=== PATIENT | female | born 1965 | race American Indian/Alaskan Native ===

== ENCOUNTER 2017-09-13 00:01 | Emergency (ER) | payer OTHER ==
[2017-09-13 01:32] LABS: Basophils % (Auto) 0.9 % (0.0-1.8); Eosinophils % (Auto) 2.4 % (0.0-4.3); Hematocrit 40.5 % (30.3-42.9); Hemoglobin 13.6 gm/dl (10.1-14.3); Mean Corpuscular HGB Conc 34 % (30-34); Mean Corpuscular Hemoglobin 30 pg (28-32); Mean Corpuscular Volume 89 fl (79-97); Platelet Count 251 K/mm3 (140-440); Red Blood Count 4.56 M/mm3 (3.65-5.03); Red Cell Distribution Width 14.1 % (13.2-15.2); White Blood Count 7.4 K/mm3 (4.5-11.0)
[2017-09-13 02:01] LABS: Alanine Aminotransferase 24 units/L (7-56); Albumin 3.7 g/dL (3.9-5); Albumin/Globulin Ratio 1.2 %; Alkaline Phosphatase 109 units/L (35-129); Anion Gap 18 mmol/L; BUN/Creatinine Ratio 23; Blood Urea Nitrogen 14 mg/dL (7-17); Carbon Dioxide 26 mmol/L (22-30); Chloride 97.2 mmol/L (98-107); Glucose 289 mg/dL (65-100); Lipase 45 units/L (13-60); Potassium 3.5 mmol/L (3.6-5.0); Sodium 138 mmol/L (137-145); Total Protein 6.9 g/dL (6.3-8.2)
[2017-09-13 02:49] LABS: Bilirubin,Urine NEG (Negative); Blood,Urine SM (Negative); Ketones,Urine NEG (Negative); Leukocyte Esterase,Urine TR (Negative); Nitrite,Urine NEG (Negative); Protein,Urine <15 mg/dL mg/dL (Negative); Urobilinogen,Urine < 2.0 mg/dL (<2.0)
--- NOTE | 2017-09-13 03:03 | Emergency Department Report ---
ED Abdominal Pain HPI - General Chief Complaint: Abdominal Pain Stated Complaint: BACK PAIN Time Seen by Provider: 09/13/17 03:00 Source: patient Mode of arrival: Ambulatory Limitations: No Limitations - History of Present Illness MD Complaint: abdominal pain -: Gradual, month(s) (since February) Location: RLQ Radiation: R flank Migration to: no migration Severity scale (0 -10): 9 Quality: stabbing Consistency: constant Improves With: rest Worsens With: medication, movement Associated Symptoms: nausea, dysuria - Related Data Home Medications Medication Instructions Recorded Confirmed Last Taken Benazepril (Nf) 10 mg PO DAILY 08/09/13 10/28/14 10/27/14 Chlorthalidone [Thalitone] 12.5 mg PO QDAY 08/09/13 10/28/14 10/27/14 Furosemide [Lasix] 40 mg PO DAILY 08/09/13 10/28/14 10/27/14 Insulin Aspart [Novolog 100 0 unit SQ AC PRN 08/09/13 10/28/14 10/27/14 UNITS/ML] Insulin Glargine,Hum.rec.anlog 102 unit SQ QHS 08/09/13 10/28/14 10/27/14 [Lantus Solostar] Insulin NPH/Regular [Novolin 70/30] 35 unit SQ QPM 08/09/13 10/28/14 10/27/14 Insulin NPH/Regular [Novolin 70/30] 60 unit SQ QAM 08/09/13 10/28/14 10/27/14 Metformin HCl [Fortamet] 1,000 mg PO BID 08/09/13 10/28/14 10/27/14 Nebivolol HCl [Bystolic] 10 mg PO QDAY 08/09/13 10/28/14 10/27/14 Pantoprazole [Protonix] 40 mg PO QDAY 08/09/13 10/28/14 10/27/14 Potassium Chloride [Klor-Con] 20 meq PO QDAY 08/09/13 10/28/14 10/27/14 Thyroid,Pork [Proctor Thyroid] 90 mg PO QDAY 08/09/13 10/28/14 10/27/14 amLODIPine [Norvasc] 10 mg PO DAILY 08/09/13 10/28/14 10/27/14 Previous Rx's Medication Instructions Recorded Last Taken Type Phenazopyridine [Pyridium] 200 mg PO TID #9 tablet 08/09/13 10/27/14 Rx traMADol [Ultram 50 MG tab] 50 mg PO Q6HR PRN #20 tablet 10/20/14 Unknown Rx Ciprofloxacin HCl [Ciprofloxacin 500 mg PO Q12H #14 tab 09/13/17 Unknown Rx TAB] Allergies Allergy/AdvReac Type Severity Reaction Status Date / Time No Known Allergies Allergy Verified 10/20/14 06:54 ED Review of Systems ROS: Stated complaint: BACK PAIN Other details as noted in HPI Comment: All other systems reviewed and negative Constitutional: no symptoms reported Eyes: as per HPI ENT: as per HPI Respiratory: no symptoms reported, see HPI Cardiovascular: as per HPI Endocrine: no symptoms reported Gastrointestinal: abdominal pain, nausea Genitourinary: as per HPI, urgency, dysuria, frequency Musculoskeletal: as per HPI Skin: as per HPI Neurological: as per HPI Psychiatric: as per HPI Hematological/Lymphatic: as per HPI ED Past Medical Hx - Past Medical History Previous Medical History?: Yes Hx Diabetes: Yes Hx GERD: Yes Additional medical history: afib, glaucoma/retinopathy, fibromyalgia. Kidney stones. Obesity - Surgical History Past Surgical History?: Yes Hx Cholecystectomy: Yes Additional Surgical History: Left Ankle fx, carpal tunnel bilateral wrists. Hysterectomy - Social History Smoking Status: Never Smoker Substance Use Type: None - Medications Home Medications: Home Medications Medication Instructions Recorded Confirmed Last Taken Type Benazepril (Nf) 10 mg PO DAILY 08/09/13 10/28/14 10/27/14 History Chlorthalidone [Thalitone] 12.5 mg PO QDAY 08/09/13 10/28/14 10/27/14 History Furosemide [Lasix] 40 mg PO DAILY 08/09/13 10/28/14 10/27/14 History Insulin Aspart [Novolog 100 0 unit SQ AC PRN 08/09/13 10/28/14 10/27/14 History UNITS/ML] Insulin Glargine,Hum.rec.anlog 102 unit SQ QHS 08/09/13 10/28/14 10/27/14 History [Lantus Solostar] Insulin NPH/Regular [Novolin 70/30] 35 unit SQ QPM 08/09/13 10/28/14 10/27/14 History Insulin NPH/Regular [Novolin 70/30] 60 unit SQ QAM 08/09/13 10/28/14 10/27/14 History Metformin HCl [Fortamet] 1,000 mg PO BID 08/09/13 10/28/14 10/27/14 History Nebivolol HCl [Bystolic] 10 mg PO QDAY 08/09/13 10/28/14 10/27/14 History Pantoprazole [Protonix] 40 mg PO QDAY 08/09/13 10/28/14 10/27/14 History Phenazopyridine [Pyridium] 200 mg PO TID #9 tablet 08/09/13 10/28/14 10/27/14 Rx Potassium Chloride [Klor-Con] 20 meq PO QDAY 08/09/13 10/28/14 10/27/14 History Thyroid,Pork [Proctor Thyroid] 90 mg PO QDAY 08/09/13 10/28/14 10/27/14 History amLODIPine [Norvasc] 10 mg PO DAILY 08/09/13 10/28/14 10/27/14 History traMADol [Ultram 50 MG tab] 50 mg PO Q6HR PRN #20 tablet 10/20/14 10/28/14 Unknown Rx Ciprofloxacin HCl [Ciprofloxacin 500 mg PO Q12H #14 tab 09/13/17 Unknown Rx TAB] ED Physical Exam - General Limitations: No Limitations General appearance: alert, in no apparent distress - Head Head exam: Present: atraumatic, normocephalic - Eye Eye exam: Present: normal appearance - ENT ENT exam: Present: mucous membranes moist - Neck Neck exam: Present: normal inspection - Respiratory Respiratory exam: Present: normal lung sounds bilaterally. Absent: respiratory distress - Cardiovascular Cardiovascular Exam: Present: regular rate, normal rhythm. Absent: systolic murmur, diastolic murmur, rubs, gallop - GI/Abdominal GI/Abdominal exam: Present: soft, normal bowel sounds - Extremities Exam Extremities exam: Present: normal inspection - Back Exam Back exam: Present: normal inspection - Neurological Exam Neurological exam: Present: alert, oriented X3 - Psychiatric Psychiatric exam: Present: normal affect, normal mood - Skin Skin exam: Present: warm, dry, intact, normal color. Absent: rash ED Course Vital Signs 09/13/17 09/13/17 09/13/17 00:38 02:12 04:47 Temperature 98.2 F 98.6 F Pulse Rate 93 H 84 89 Respiratory 18 16 16 Rate Blood Pressure 141/57 125/59 121/60 [Right] O2 Sat by Pulse 98 95 97 Oximetry ED Medical Decision Making - Lab Data Result diagrams: 09/13/17 01:03 09/13/17 01:03 Critical care attestation.: If time is entered above; I have spent that time in minutes in the direct care of this critically ill patient, excluding procedure time. ED Disposition Clinical Impression: Abdominal pain, UTI (urinary tract infection), Flank pain, Dysuria Disposition: - TO HOME OR SELFCARE Is pt being admited?: No Does the pt Need Aspirin: No Condition: Stable Instructions: Abdominal Pain (ED) Additional Instructions: Patient to follow-up with primary care and lead cashier in 3-5 days. Patient to take Tylenol or ibuprofen when necessary for pain.. Patient to increase water.. Patient to return to ED if condition worsens. Prescriptions: Ciprofloxacin HCl [Ciprofloxacin TAB] 500 mg PO Q12H #14 tab Referrals: PRIMARY CARE [Primary Care Provider] - 3-5 Days Time of Disposition: 04:57
--- NOTE | 2017-09-13 04:12 | Cat Scan Report ---
FINAL REPORT EXAM: CT ABDOMEN PELVIS WO CON HISTORY: pain RT FLANK / RLQ PAIN TECHNIQUE: Routine axial imaging was obtained of the abdomen and pelvis without oral or IV contrast. Sagittal and coronal reconstructions were reviewed. Comparison is made study of 10/20/2014. FINDINGS: The lung bases reveal chronic changes bilaterally. Pleural fluid is not seen. The gallbladder is not identified. The liver, pancreas, spleen, and adrenal glands appear normal. The kidneys show no evidence of stones or hydronephrosis. The bowel loops are normal in caliber and course. The appendix is normal in configuration. There is no evidence of free fluid or adenopathy. In the pelvis the bladder appears normal. The uterus has been removed. The skeletal structures reveal obesity along with facet arthropathy changes in the lower lumbar spine. IMPRESSION: No evidence of renal stones or obstructive uropathy. Normal appendix. Cholecystectomy. No acute process in the abdomen pelvis. Hysterectomy.
[2017-09-13 04:47] VITALS: BP 121/60
[2017-09-13] MEDS ORDERED: XYLOCAINE 1% MPF 5 mL INFILTRATI ONE (04:59)
[2017-09-13] MEDS ORDERED: ROCEPHIN IM ONE (04:59)
== END 2017-09-13 05:51 | disposition home or self-care (01) ==
LOC: ED 00:01
DX: N39.0 Urinary tract infection, site not specified (principal); R30.0 Dysuria; R10.31 Right lower quadrant pain; E11.9 Type 2 diabetes mellitus without complications; K21.9 Gastro-esophageal reflux disease without esophagitis; Z79.4 Long term (current) use of insulin
CPT/HCPCS: 36415; 74176; 80053; 81001; 83690; 85025; 96372; 99284; J0696

== ENCOUNTER 2017-12-10 10:50 | Outpatient (CLI) | payer OTHER ==
--- NOTE | 2017-12-10 16:24 | Ultrasound Report ---
ABDOMINAL ULTRASOUND: 12/10/17 CLINICAL: Abdominal pain. FINDINGS: High-resolution ultrasound demonstrates an enlarged and echogenic liver and suboptimal imaging of the liver due to body habitus. No liver mass identified. Poor visualization of hepatic vasculature. Normal inferior vena cava. A gallbladder was not identified. This normal bile ducts. The common bile duct measures 1 mm diameter. Normal pancreatic head and proximal body. The distal body and tail are not well imaged due to the bowel gas. Normal abdominal aorta. A normal spleen measures 9.9 x 4.9 x 5.9cm. Normal kidneys with normal echogenicity and normal non-dilated renal collecting systems and ureters. The right kidney measures 11.5 x 5.5 x 5.0cm. The left kidney measures 12.2 x 5.8 x 5.0cm. No renal mass or calculus. No ascites or mass. IMPRESSION: 1. Hepatic steatosis and hepatomegaly. 2. Normal bile ducts status post cholecystectomy. 3. No signs of pancreatitis but limited imaging of the distal pancreas.
--- NOTE | 2017-12-10 16:26 | Ultrasound Report ---
TRANSABDOMINAL AND TRANSVAGINAL PELVIC ULTRASOUND: 12/10/17 00:00:00 CLINICAL: Pelvic and perineal pain. FINDINGS: Transabdominal and transvaginal pelvic ultrasound demonstrated absence of the uterus and normal vaginal cuff. No ovaries identified. No adnexal mass. No free fluid. Normal urinary bladder. IMPRESSION: Normal pelvis status post total abdominal hysterectomy. No explanation for pelvic pain.
== END 2017-12-10 10:51 | disposition home or self-care (01) ==
LOC: SPVWC 10:50
PROVIDERS: ATTEND Nurse Practitioner Family
DX: K76.0 Fatty (change of) liver, not elsewhere classified (principal); R16.0 Hepatomegaly, not elsewhere classified; R10.2 Pelvic and perineal pain; Z90.710 Acquired absence of both cervix and uterus; Z90.49 Acquired absence of other specified parts of digestive tract
CPT/HCPCS: 76700; 76830; 76856

== ENCOUNTER 2018-02-12 07:07 | Day surgery (SDC) | payer OTHER ==
[2018-02-12] MEDS ORDERED: WATER FOR IRRIG STERILE IR ONE (07:24)
[2018-02-12] MEDS ORDERED: INFANTS' GAS RELIEF PO ONE ×2 (07:25→09:22)
--- NOTE | 2018-02-12 08:23 | Anesthesia Consultation ---
Anesthesia Consult and Med Hx Date of service: 02/12/18 - Airway Anesthetic Teeth Evaluation: Poor ROM Head & Neck: Adequate Mental/Hyoid Distance: Adequate Mallampati Class: Class IV Intubation Access Assessment: Possibly Difficult - Pre-Operative Health Status ASA Pre-Surgery Classification: ASA3 Proposed Anesthetic Plan: MAC - Pulmonary SOB: Yes Hx Sleep Apnea: Yes - Cardiovascular System Hx Hypertension: Yes Hx Cardia Arrhythmia: Yes (h/o a-fib) Hx Valvular Heart Disease: Yes (MVP) Hx Peripheral Vascular Disease: Yes (diabetic neuropathy) - Endocrine Hx Insulin Dependent Diabetes: Yes - Other Systems Hx Obesity: Yes (morbid obesity)
--- NOTE | 2018-02-12 08:24 | Anesthesia Day of Surgery ---
Anesthesia Day of Surgery - Day of Surgery Patient Examined: Yes Patient H&P Reviewed: Yes Patient is NPO: Yes Beta Blockers: Yes Cardiac Clearance: Yes
[2018-02-12] MEDS ORDERED: KETALAR ONE (09:05)
[2018-02-12] MEDS ORDERED: GI SPOT IJ ONE (09:32)
[2018-02-12] MEDS ORDERED: DIPRIVAN 10 MG/ML IV ONE ×2 (09:48→09:49)
--- NOTE | 2018-02-12 09:57 | Short Stay Summary ---
Short Stay Documentation - Allergies and Medications Current Medications: Allergies No Known Allergies Allergy (Verified 10/20/14 06:54) Home Medications Medication Instructions Recorded Confirmed Last Taken Type Benazepril (Nf) 10 mg PO DAILY 08/09/13 10/28/14 10/27/14 History Chlorthalidone [Thalitone] 12.5 mg PO QDAY 08/09/13 10/28/14 10/27/14 History Furosemide [Lasix] 40 mg PO DAILY 08/09/13 10/28/14 10/27/14 History Insulin Aspart [Novolog 100 0 unit SQ AC PRN 08/09/13 10/28/14 10/27/14 History UNITS/ML] Insulin Glargine,Hum.rec.anlog 102 unit SQ QHS 08/09/13 10/28/14 10/27/14 History [Lantus Solostar] Insulin NPH/Regular [Novolin 70/30] 35 unit SQ QPM 08/09/13 10/28/14 10/27/14 History Insulin NPH/Regular [Novolin 70/30] 60 unit SQ QAM 08/09/13 10/28/14 10/27/14 History Metformin HCl [Fortamet] 1,000 mg PO BID 08/09/13 10/28/14 10/27/14 History Nebivolol HCl [Bystolic] 10 mg PO QDAY 08/09/13 10/28/14 10/27/14 History Pantoprazole [Protonix] 40 mg PO QDAY 08/09/13 10/28/14 10/27/14 History Phenazopyridine [Pyridium] 200 mg PO TID #9 tablet 08/09/13 10/28/14 10/27/14 Rx Potassium Chloride [Klor-Con] 20 meq PO QDAY 08/09/13 10/28/14 10/27/14 History Thyroid,Pork [Williams Thyroid] 90 mg PO QDAY 08/09/13 10/28/14 10/27/14 History amLODIPine [Norvasc] 10 mg PO DAILY 08/09/13 10/28/14 10/27/14 History traMADol [Ultram 50 MG tab] 50 mg PO Q6HR PRN #20 tablet 10/20/14 10/28/14 Unknown Rx Ciprofloxacin HCl [Ciprofloxacin 500 mg PO Q12H #14 tab 09/13/17 Unknown Rx TAB] - Brief post op/procedure progress note Date of procedure: 02/12/18 Pre-op diagnosis: colon cancer screening Post-op diagnosis: same (EGD: 1. GERD 2. Gastritis 3. Gastric nodule 4, Duodenitis Colonoscopy: 1. Polypoid mass 2, Internal hemorrhoids) Procedure: 1. EGD with biopsy 2. Colonoscopy with biopsy and Tattooing Anesthesia: MAC Findings: as above Surgeon: WILLIAM DIXON Estimated blood loss: none Pathology: list (1. Antrum 2. Gastric nodule 3. Transverse colon mass) Specimen disposition: to lab Condition: stable - Disposition Condition at discharge: Stable Disposition: [id number]-01 TO HOME OR SELFCARE Short Stay Discharge Plan Activity: no restrictions Weight Bearing Status: Full Weight Bearing Diet: regular, low salt Follow up with: ALCON ALVES MD [Primary Care Provider] - 7 Days
[2018-02-12 10:16] VITALS: BP 171/89
[2018-02-12] MEDS ORDERED: NACL 0.9% 1000 ML 1,000 ML IV SCH (11:00)
[2018-02-12] MEDS ORDERED: INFANTS' GAS RELIEF PO PRN (14:14)
--- NOTE | 2018-02-12 15:27 | Post Anesthesia Evaluation ---
- Post Anesthesia Evaluation Patient Participated: Yes Airway Patent: Yes Stable Respiratory Function: Yes Nausea/Vomiting: No Temp > 96.8F: Yes Pain Manageable: Yes Adequeate Hydration: Yes Anesthesia Complications: No
== END 2018-02-12 07:08 | disposition home or self-care (01) ==
LOC: GIO 07:07
PROVIDERS: ATTEND Internal Medicine Gastroenterology
DX: Z12.11 Encounter for screening for malignant neoplasm of colon (principal); D12.3 Benign neoplasm of transverse colon; K64.8 Other hemorrhoids; K31.7 Polyp of stomach and duodenum; K29.00 Acute gastritis without bleeding; K29.80 Duodenitis without bleeding; K21.9 Gastro-esophageal reflux disease without esophagitis; E11.319 Type 2 diabetes mellitus with unspecified diabetic retinopathy without macular edema; E11.40 Type 2 diabetes mellitus with diabetic neuropathy, unspecified; I10 Essential (primary) hypertension; M06.9 Rheumatoid arthritis, unspecified; I48.0 Paroxysmal atrial fibrillation; G47.33 Obstructive sleep apnea (adult) (pediatric); E66.01 Morbid (severe) obesity due to excess calories; E78.5 Hyperlipidemia, unspecified; K31.89 Other diseases of stomach and duodenum; Z79.01 Long term (current) use of anticoagulants; Z79.4 Long term (current) use of insulin; Z83.3 Family history of diabetes mellitus; Z82.49 Family history of ischemic heart disease and other diseases of the circulatory system; Z87.19 Personal history of other diseases of the digestive system
CPT/HCPCS: 43239; 45380; 45381; 82962; 88305; 88342; J2704; J7030

== ENCOUNTER 2018-03-09 23:47 | Emergency (ER) | payer OTHER ==
[2018-03-10 00:39] VITALS: BP 129/73
--- NOTE | 2018-03-10 02:44 | XRay Report ---
FINAL REPORT EXAM: XR KNEE 3V RT HISTORY: fall with swelling and pain COMPARISON: None available. FINDINGS: Three views of the right knee obtained. Small joint effusion. Mild patellar osteophyte. Joint spaces are preserved. No acute fracture dislocation. IMPRESSION: No acute bony abnormality. Small joint effusion.
--- NOTE | 2018-03-10 02:44 | XRay Report ---
FINAL REPORT EXAM: XR FOREARM RT HISTORY: Fall keyshawn swelling and pain COMPARISON: Right wrist from the same date. FINDINGS: Two views of the right forearm obtained. Remote fracture of the distal ulnar diaphysis. Fracture is healed. 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 Radius and ulna are otherwise intact. Mild narrowing of the radiocarpal joint space. Small olecranon enthesophyte. Mild hypertrophic spurring of the proximal ulna. No acute fracture dislocation. IMPRESSION: No acute bony abnormality.
--- NOTE | 2018-03-10 02:44 | XRay Report ---
FINAL REPORT EXAM: XR WRIST 3+V RT HISTORY: fall with pain and swelling COMPARISON: None available. FINDINGS: Three views the right wrist obtained. There is a remote fracture of the distal ulnar diaphysis which is healed. Normal alignment of the carpal bones. Mild narrowing of the radiocarpal joint space and mild degenerative changes of the triscaphe joint and 1st carpometacarpal joint. 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 IMPRESSION: No acute fracture. Remote fractures of the distal ulna.
--- NOTE | 2018-03-10 03:23 | Emergency Department Report ---
ED Fall HPI - General Chief Complaint: Fall Stated Complaint: RT WRIST/RT KNEE PAIN Time Seen by Provider: 03/10/18 03:20 Source: patient Mode of arrival: Wheelchair - History of Present Illness Initial Comments: 52-year-old -Russian female. Multiple history of A. fib TIA diabetes hypertension comes in status post fall. Patient reports that her Ruiz got stuck on the floor and she fell forward onto her knees and face. Patient denies any loss of consciousness denies any head injury she reports she has right knee and right wrist pain. Patient does admit that she's had a right wrist fracture in the past. Patient is on warfarin insulin hypertensive in heart failure medication as well as gabapentin Synthroid. Patient denies any dizziness shortness of breathing or chest pain. 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[employer] Fall Witnessed: yes, by family Place Fall Occurred: home Loss of Consciousness: none Prolonged Down Time?: no Symptoms Prior to Fall: none Location - Extremities: Right: Arm, Knee Severity: severe Severity scale (0 -10): 10 Quality: stabbing Context: tripped/slipped Associated Symptoms: denies - Related Data Home Medications Medication Instructions Recorded Confirmed Last Taken Benazepril (Nf) 10 mg PO DAILY 08/09/13 02/12/18 02/11/18 Furosemide [Lasix] 40 mg PO DAILY 08/09/13 02/12/18 10/27/14 Insulin Aspart [Novolog 100 0 unit SQ AC PRN 08/09/13 02/12/18 10/27/14 UNITS/ML] Insulin Glargine,Hum.rec.anlog 102 unit SQ QHS 08/09/13 02/12/18 10/27/14 [Lantus Solostar] Insulin NPH/Regular [Novolin 70/30] 35 unit SQ QPM 08/09/13 02/12/18 02/11/18 Insulin NPH/Regular [Novolin 70/30] 60 unit SQ QAM 08/09/13 02/12/18 10/27/14 Metformin HCl [Fortamet] 1,000 mg PO BID 08/09/13 02/12/18 10/27/14 Nebivolol HCl [Bystolic] 10 mg PO QDAY 08/09/13 02/12/18 10/27/14 Pantoprazole [Protonix] 40 mg PO QDAY 08/09/13 02/12/18 02/11/18 Potassium Chloride [Klor-Con] 20 meq PO QDAY 08/09/13 02/12/18 02/11/18 Thyroid,Pork [[place] Thyroid] 90 mg PO QDAY 08/09/13 02/12/18 10/27/14 amLODIPine [Norvasc] 10 mg PO DAILY 08/09/13 02/12/18 10/27/14 ALBUTEROL Inhaler 2 puff INHALATION PRN PRN 02/12/18 02/12/18 Unknown AtorvaSTATin 20 mg PO DAILY 02/12/18 02/12/18 02/11/18 Carvedilol 25 mg PO DAILY 02/12/18 02/12/18 02/11/18 Cyclobenzaprine 10 mg PO PRN PRN 02/12/18 02/12/18 Unknown Enoxaparin 120 mg SUB-Q DAILY 02/12/18 02/12/18 02/11/18 Flonase 1 puff INHALATION DAILY 02/12/18 02/12/18 Unknown Furosemide 40 mg PO DAILY 02/12/18 02/12/18 02/11/18 Gabapentin 600 mg PO DAILY 02/12/18 02/12/18 Unknown Synthroid 1 tab PO DAILY 02/12/18 02/12/18 Unknown Vitamin D (Nf) 1,000 mg PO DAILY 02/12/18 02/12/18 Unknown Warfarin 5 mg PO DAILY 02/12/18 02/12/18 02/05/18 Warfarin 10 mg PO 1XW 02/12/18 02/12/18 Unknown Zofran TAB 8 mg PO PRN PRN 02/12/18 02/12/18 Unknown Previous Rx's Medication Instructions Recorded Last Taken Type Phenazopyridine [Pyridium] 200 mg PO TID #9 tablet 08/09/13 10/27/14 Rx Ciprofloxacin HCl [Ciprofloxacin 500 mg PO Q12H #14 tab 09/13/17 Unknown Rx TAB] traMADol [Ultram 50 MG tab] 50 mg PO Q6HR PRN #20 tablet 03/10/18 Unknown Rx Allergies Allergy/AdvReac Type Severity Reaction Status Date / Time adhesive tape Allergy Unknown Verified 03/10/18 01:18 ED Review of Systems ROS: Stated complaint: RT WRIST/RT KNEE PAIN Other details as noted in HPI Constitutional: denies: chills, fever Respiratory: denies: cough, shortness of breath, wheezing Cardiovascular: denies: chest pain, palpitations Endocrine: no symptoms reported Gastrointestinal: denies: abdominal pain, nausea, diarrhea Genitourinary: denies: urgency, dysuria, discharge Musculoskeletal: joint swelling (right knee and right wrist), arthralgia (right knee and right wrist) Skin: denies: rash, lesions Neurological: denies: headache, weakness, paresthesias Psychiatric: denies: anxiety, depression Hematological/Lymphatic: denies: easy bleeding, easy bruising ED Past Medical Hx - Past Medical History Previous Medical History?: Yes Hx Hypertension: Yes Hx Diabetes: Yes Hx GERD: Yes Hx Arthritis: Yes Additional medical history: afib, glaucoma/retinopathy, fibromyalgia. Kidney stones. Obesity - Surgical History Past Surgical History?: Yes Hx Cholecystectomy: Yes Additional Surgical History: Left Ankle fx, carpal tunnel bilateral wrists. Hysterectomy - Social History Smoking Status: Never Smoker Substance Use Type: None - Medications Home Medications: Home Medications Medication Instructions Recorded Confirmed Last Taken Type Benazepril (Nf) 10 mg PO DAILY 08/09/13 02/12/18 02/11/18 History Furosemide [Lasix] 40 mg PO DAILY 08/09/13 02/12/18 10/27/14 History Insulin Aspart [Novolog 100 0 unit SQ AC PRN 08/09/13 02/12/18 10/27/14 History UNITS/ML] Insulin Glargine,Hum.rec.anlog 102 unit SQ QHS 08/09/13 02/12/18 10/27/14 History [Lantus Solostar] Insulin NPH/Regular [Novolin 70/30] 35 unit SQ QPM 08/09/13 02/12/18 02/11/18 History Insulin NPH/Regular [Novolin 70/30] 60 unit SQ QAM 08/09/13 02/12/18 10/27/14 History Metformin HCl [Fortamet] 1,000 mg PO BID 08/09/13 02/12/18 10/27/14 History Nebivolol HCl [Bystolic] 10 mg PO QDAY 08/09/13 02/12/18 10/27/14 History Pantoprazole [Protonix] 40 mg PO QDAY 08/09/13 02/12/18 02/11/18 History Phenazopyridine [Pyridium] 200 mg PO TID #9 tablet 08/09/13 02/12/18 10/27/14 Rx Potassium Chloride [Klor-Con] 20 meq PO QDAY 08/09/13 02/12/18 02/11/18 History Thyroid,Pork [[place] Thyroid] 90 mg PO QDAY 08/09/13 02/12/18 10/27/14 History amLODIPine [Norvasc] 10 mg PO DAILY 08/09/13 02/12/18 10/27/14 History Ciprofloxacin HCl [Ciprofloxacin 500 mg PO Q12H #14 tab 09/13/17 02/12/18 Unknown Rx TAB] ALBUTEROL Inhaler 2 puff INHALATION PRN PRN 02/12/18 02/12/18 Unknown History AtorvaSTATin 20 mg PO DAILY 02/12/18 02/12/18 02/11/18 History Carvedilol 25 mg PO DAILY 02/12/18 02/12/18 02/11/18 History Cyclobenzaprine 10 mg PO PRN PRN 02/12/18 02/12/18 Unknown History Enoxaparin 120 mg SUB-Q DAILY 02/12/18 02/12/18 02/11/18 History Flonase 1 puff INHALATION DAILY 02/12/18 02/12/18 Unknown History Furosemide 40 mg PO DAILY 02/12/18 02/12/18 02/11/18 History Gabapentin 600 mg PO DAILY 02/12/18 02/12/18 Unknown History Synthroid 1 tab PO DAILY 02/12/18 02/12/18 Unknown History Vitamin D (Nf) 1,000 mg PO DAILY 02/12/18 02/12/18 Unknown History Warfarin 5 mg PO DAILY 02/12/18 02/12/18 02/05/18 History Warfarin 10 mg PO 1XW 02/12/18 02/12/18 Unknown History Zofran TAB 8 mg PO PRN PRN 02/12/18 02/12/18 Unknown History traMADol [Ultram 50 MG tab] 50 mg PO Q6HR PRN #20 tablet 03/10/18 Unknown Rx ED Physical Exam - General Limitations: No Limitations General appearance: alert, in no apparent distress - Head Head exam: Present: atraumatic, normocephalic - Eye Eye exam: Present: normal appearance - ENT ENT exam: Present: mucous membranes moist - Neck Neck exam: Present: normal inspection - Expanded Upper Extremity Exam Right Shoulder Exam: Present: normal inspection, full ROM Upper Arm exam: Present: normal inspection, full ROM Elbow exam: Present: normal inspection, full ROM Forearm Wrist exam: Present: tenderness, swelling. Absent: tenderness over anatomical snuff box, pain with axial thumb loading Hand Wrist exam: Present: tenderness, swelling Vascular: Present: vascular compromise - Expanded Lower Extremity Exam Right Hip exam: Present: normal inspection Upper Leg exam: Present: normal inspection Knee exam: Present: tenderness, swelling, abrasion Lower Leg exam: Present: normal inspection. Absent: tenderness Ankle exam: Present: normal inspection, full ROM. Absent: tenderness, swelling Neuro vascular tendon exam: Present: no vascular compromise - Back Exam Back exam: Present: normal inspection - Neurological Exam Neurological exam: Present: alert, oriented X3 - Psychiatric Psychiatric exam: Present: normal affect, normal mood - Skin Skin exam: Present: warm, dry, intact, normal color. Absent: rash ED Course Vital Signs 03/10/18 00:15 Temperature 98.1 F Pulse Rate 89 Respiratory 18 Rate Blood Pressure 129/73 O2 Sat by Pulse 97 Oximetry ED Medical Decision Making - Radiology Data Radiology results: report reviewed, image reviewed FINAL REPORT EXAM: XR FOREARM RT HISTORY: Fall keyshawn swelling and pain COMPARISON: Right wrist from the same date. FINDINGS: Two views of the right forearm obtained. Remote fracture of the distal ulnar diaphysis. Fracture is healed. 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 Radius and ulna are otherwise intact. Mild narrowing of the radiocarpal joint space. Small olecranon enthesophyte. Mild hypertrophic spurring of the proximal ulna. No acute fracture dislocation. IMPRESSION: No acute bony abnormality. Transcribed By: LMA Dictated By: MATT BEE MD Electronically Authenticated By: MATT BEE MD Signed Date/Time: 03/10/18216 DD/ 6 TD/TT: 03/10/18216 FINAL REPORT EXAM: XR WRIST 3+V RT HISTORY: fall with pain and swelling COMPARISON: None available. FINDINGS: Three views the right wrist obtained. There is a remote fracture of the distal ulnar diaphysis which is healed. Normal alignment of the carpal bones. Mild narrowing of the radiocarpal joint space and mild degenerative changes of the triscaphe joint and 1st carpometacarpal joint. 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 IMPRESSION: No acute fracture. Remote fractures of the distal ulna. Transcribed By: LMA Dictated By: MATT BEE MD Electronically Authenticated By: MATT BEE MD Signed Date/Time: 03/10/18215 DD/ 5 TD/TT: 03/10/18215 FINAL REPORT EXAM: XR KNEE 3V RT HISTORY: fall with swelling and pain COMPARISON: None available. FINDINGS: Three views of the right knee obtained. Small joint effusion. Mild patellar osteophyte. Joint spaces are preserved. No acute fracture dislocation. IMPRESSION: No acute bony abnormality. Small joint effusion. Transcribed By: LMA Dictated By: MATT BEE MD Electronically Authenticated By: MATT BEE MD Signed Date/Time: 03/10/18215 - Medical Decision Making Patient's been evaluated by this provider fast track. I discussed the patient appears to be no acute fractures. Discussed the patient I'll place him on knee immobilizer and walker. Discussed the patient is symptoms persist to follow up with orthopedist I will list several below for her convenience. Discussed the patient I will place her on tramadol for pain. Patient verbalized understanding. Critical care attestation.: If time is entered above; I have spent that time in minutes in the direct care of this critically ill patient, excluding procedure time. ED Disposition Clinical Impression: Right wrist pain, Right anterior knee pain Fall Qualifiers: Encounter type: initial encounter Qualified Code(s): W19.XXXA - Unspecified fall, initial encounter Right knee injury Qualifiers: Encounter type: initial encounter Qualified Code(s): S89.91XA - Unspecified injury of right lower leg, initial encounter Disposition: TO HOME OR SELFCARE Is pt being admited?: No Does the pt Need Aspirin: No Condition: Stable Additional Instructions: Please take tramadol as prescribed. Please follow up with orthopedist for further evaluation if symptoms persist or gets worse. Prescriptions: traMADol [Ultram 50 MG tab] 50 mg PO Q6HR PRN #20 tablet PRN Reason: Pain Referrals: PRIMARY CAREMD [Primary Care Provider] - 3-5 Days GALLO OTT MD [Staff Physician] - 3-5 Days JAMARCUS MULLEN MD [Staff Physician] - 3-5 Days [facility] [Provider Group] - 3-5 Days Forms: Accompanied Note
[2018-03-10] MEDS ORDERED: PERCOCET 5/325 PO ONE (03:44)
== END 2018-03-10 04:11 | disposition home or self-care (01) ==
LOC: ED 23:47
DX: S89.91XA Unspecified injury of right lower leg, initial encounter (principal); I10 Essential (primary) hypertension; E11.9 Type 2 diabetes mellitus without complications; K21.9 Gastro-esophageal reflux disease without esophagitis; M19.90 Unspecified osteoarthritis, unspecified site; Z90.49 Acquired absence of other specified parts of digestive tract; Z90.710 Acquired absence of both cervix and uterus; Z87.442 Personal history of urinary calculi; Z79.4 Long term (current) use of insulin; Z91.09 Other allergy status, other than to drugs and biological substances; W01.198A Fall on same level from slipping, tripping and stumbling with subsequent striking against other object, initial encounter; Y93.89 Activity, other specified; Y92.89 Other specified places as the place of occurrence of the external cause; Y99.8 Other external cause status
CPT/HCPCS: 99284

== ENCOUNTER 2018-04-02 10:22 | Emergency (ER) | payer OTHER ==
[2018-04-02 10:58] VITALS: BP 137/59
[2018-04-02] MEDS ORDERED: MOTRIN PO ONE (12:23)
--- NOTE | 2018-04-02 12:23 | Emergency Department Report ---
Blank Doc - Documentation Documentation: Patient is a 53-year-old female who fell roughly 7 days ago down 3 stairs who is coming in for pain. Patient states that she thought her pain would be better by now but is not. Patient has some swelling and pain at the right elbow as well as bilateral rib pain. Patient states first take a deep breath and when she coughs she has to grab her chest. Patient denies any fevers chills nausea vomiting. Patient states there was no head injury loss of consciousness. Patient states the pains are a 10 severity.
--- NOTE | 2018-04-02 12:49 | XRay Report ---
RIGHT ELBOW, 2 views: HISTORY: Fall with injury. The bony architecture is intact without evidence of fracture or dislocation. No significant soft tissue abnormality is seen. IMPRESSION: Normal right elbow.
--- NOTE | 2018-04-02 12:52 | XRay Report ---
BILATERAL RIBS, 4 views: History: Fall injury. There is suggestion of a very subtle nondisplaced right lateral seventh rib fracture which is best demonstrated on the oblique image. Please correlate with the patient. The remaining ribs are intact. The lungs are well-aerated. IMPRESSION: Questionable nondisplaced right lateral seventh rib fracture.
--- NOTE | 2018-04-02 13:45 | Emergency Department Report ---
ED Extremity Problem HPI - General Chief complaint: Fall Stated complaint: RIB PAIN FROM FALL Time Seen by Provider: 04/02/18 12:19 Source: patient Mode of arrival: Ambulatory Limitations: No Limitations - History of Present Illness Initial comments: Patient is a 53-year-old female who fell roughly 7 days ago down 3 stairs who is coming in for pain. Patient states that she thought her pain would be better by now but is not. Patient has some swelling and pain at the right elbow as well as bilateral rib pain. Patient states first take a deep breath and when she coughs she has to grab her chest. Patient denies any fevers chills nausea vomiting. Patient states there was no head injury loss of consciousness. Patient states the pains are a 10 severity. Severity scale (0 -10): 1 - Related Data Home Medications Medication Instructions Recorded Confirmed Last Taken Benazepril (Nf) 10 mg PO DAILY 08/09/13 02/12/18 02/11/18 Furosemide [Lasix] 40 mg PO DAILY 08/09/13 02/12/18 10/27/14 Insulin Aspart [Novolog 100 0 unit SQ AC PRN 08/09/13 02/12/18 10/27/14 UNITS/ML] Insulin Glargine,Hum.rec.anlog 102 unit SQ QHS 08/09/13 02/12/18 10/27/14 [Lantus Solostar] Insulin NPH/Regular [Novolin 70/30] 35 unit SQ QPM 08/09/13 02/12/18 02/11/18 Insulin NPH/Regular [Novolin 70/30] 60 unit SQ QAM 08/09/13 02/12/18 10/27/14 Metformin HCl [Fortamet] 1,000 mg PO BID 08/09/13 02/12/18 10/27/14 Nebivolol HCl [Bystolic] 10 mg PO QDAY 08/09/13 02/12/18 10/27/14 Pantoprazole [Protonix] 40 mg PO QDAY 08/09/13 02/12/18 02/11/18 Potassium Chloride [Klor-Con] 20 meq PO QDAY 08/09/13 02/12/18 02/11/18 Thyroid,Pork [[place] Thyroid] 90 mg PO QDAY 08/09/13 02/12/18 10/27/14 amLODIPine [Norvasc] 10 mg PO DAILY 08/09/13 02/12/18 10/27/14 ALBUTEROL Inhaler 2 puff INHALATION PRN PRN 02/12/18 02/12/18 Unknown AtorvaSTATin 20 mg PO DAILY 02/12/18 02/12/18 02/11/18 Carvedilol 25 mg PO DAILY 02/12/18 02/12/18 02/11/18 Cyclobenzaprine 10 mg PO PRN PRN 02/12/18 02/12/18 Unknown Enoxaparin 120 mg SUB-Q DAILY 02/12/18 02/12/18 02/11/18 Flonase 1 puff INHALATION DAILY 02/12/18 02/12/18 Unknown Furosemide 40 mg PO DAILY 02/12/18 02/12/18 02/11/18 Gabapentin 600 mg PO DAILY 02/12/18 02/12/18 Unknown Synthroid 1 tab PO DAILY 02/12/18 02/12/18 Unknown Vitamin D (Nf) 1,000 mg PO DAILY 02/12/18 02/12/18 Unknown Warfarin 5 mg PO DAILY 02/12/18 02/12/18 02/05/18 Warfarin 10 mg PO 1XW 02/12/18 02/12/18 Unknown Zofran TAB 8 mg PO PRN PRN 02/12/18 02/12/18 Unknown Previous Rx's Medication Instructions Recorded Last Taken Type Phenazopyridine [Pyridium] 200 mg PO TID #9 tablet 08/09/13 10/27/14 Rx Ciprofloxacin HCl [Ciprofloxacin 500 mg PO Q12H #14 tab 09/13/17 Unknown Rx TAB] traMADol [Ultram 50 MG tab] 50 mg PO Q6HR PRN #20 tablet 03/10/18 Unknown Rx HYDROcodone/APAP 5-325 [[place] 1 each PO Q4HR PRN #12 tablet 04/02/18 Unknown Rx 5/325] Ibuprofen [Motrin] 600 mg PO Q8H PRN #20 tablet 04/02/18 Unknown Rx Allergies Allergy/AdvReac Type Severity Reaction Status Date / Time adhesive tape Allergy Unknown Verified 03/10/18 01:18 ED Review of Systems ROS: Stated complaint: RIB PAIN FROM FALL Other details as noted in HPI Comment: All other systems reviewed and negative ED Past Medical Hx - Past Medical History Hx Hypertension: Yes Hx Diabetes: Yes Hx GERD: Yes Hx Arthritis: Yes Additional medical history: afib, glaucoma/retinopathy, fibromyalgia. Kidney stones. Obesity - Surgical History Hx Cholecystectomy: Yes Additional Surgical History: Left Ankle fx, carpal tunnel bilateral wrists. Hysterectomy - Social History Smoking Status: Never Smoker Substance Use Type: None - Medications Home Medications: Home Medications Medication Instructions Recorded Confirmed Last Taken Type Benazepril (Nf) 10 mg PO DAILY 08/09/13 02/12/18 02/11/18 History Furosemide [Lasix] 40 mg PO DAILY 08/09/13 02/12/18 10/27/14 History Insulin Aspart [Novolog 100 0 unit SQ AC PRN 08/09/13 02/12/18 10/27/14 History UNITS/ML] Insulin Glargine,Hum.rec.anlog 102 unit SQ QHS 08/09/13 02/12/18 10/27/14 History [Lantus Solostar] Insulin NPH/Regular [Novolin 70/30] 35 unit SQ QPM 08/09/13 02/12/18 02/11/18 History Insulin NPH/Regular [Novolin 70/30] 60 unit SQ QAM 08/09/13 02/12/18 10/27/14 History Metformin HCl [Fortamet] 1,000 mg PO BID 08/09/13 02/12/18 10/27/14 History Nebivolol HCl [Bystolic] 10 mg PO QDAY 08/09/13 02/12/18 10/27/14 History Pantoprazole [Protonix] 40 mg PO QDAY 08/09/13 02/12/18 02/11/18 History Phenazopyridine [Pyridium] 200 mg PO TID #9 tablet 08/09/13 02/12/18 10/27/14 Rx Potassium Chloride [Klor-Con] 20 meq PO QDAY 08/09/13 02/12/18 02/11/18 History Thyroid,Pork [[place] Thyroid] 90 mg PO QDAY 08/09/13 02/12/18 10/27/14 History amLODIPine [Norvasc] 10 mg PO DAILY 08/09/13 02/12/18 10/27/14 History Ciprofloxacin HCl [Ciprofloxacin 500 mg PO Q12H #14 tab 09/13/17 02/12/18 Unknown Rx TAB] ALBUTEROL Inhaler 2 puff INHALATION PRN PRN 02/12/18 02/12/18 Unknown History AtorvaSTATin 20 mg PO DAILY 02/12/18 02/12/18 02/11/18 History Carvedilol 25 mg PO DAILY 02/12/18 02/12/18 02/11/18 History Cyclobenzaprine 10 mg PO PRN PRN 02/12/18 02/12/18 Unknown History Enoxaparin 120 mg SUB-Q DAILY 02/12/18 02/12/18 02/11/18 History Flonase 1 puff INHALATION DAILY 02/12/18 02/12/18 Unknown History Furosemide 40 mg PO DAILY 02/12/18 02/12/18 02/11/18 History Gabapentin 600 mg PO DAILY 02/12/18 02/12/18 Unknown History Synthroid 1 tab PO DAILY 02/12/18 02/12/18 Unknown History Vitamin D (Nf) 1,000 mg PO DAILY 02/12/18 02/12/18 Unknown History Warfarin 5 mg PO DAILY 02/12/18 02/12/18 02/05/18 History Warfarin 10 mg PO 1XW 02/12/18 02/12/18 Unknown History Zofran TAB 8 mg PO PRN PRN 02/12/18 02/12/18 Unknown History traMADol [Ultram 50 MG tab] 50 mg PO Q6HR PRN #20 tablet 03/10/18 Unknown Rx HYDROcodone/APAP 5-325 [[place] 1 each PO Q4HR PRN #12 tablet 04/02/18 Unknown Rx 5/325] Ibuprofen [Motrin] 600 mg PO Q8H PRN #20 tablet 04/02/18 Unknown Rx ED Physical Exam - General Limitations: No Limitations General appearance: alert, in no apparent distress - Head Head exam: Present: atraumatic, normocephalic - Eye Eye exam: Present: normal appearance - ENT ENT exam: Present: mucous membranes moist - Neck Neck exam: Present: normal inspection - Respiratory Respiratory exam: Present: normal lung sounds bilaterally, chest wall tenderness. Absent: respiratory distress, wheezes, rales, rhonchi - Cardiovascular Cardiovascular Exam: Present: regular rate, normal rhythm. Absent: systolic murmur, diastolic murmur, rubs, gallop - GI/Abdominal GI/Abdominal exam: Present: soft, normal bowel sounds - Extremities Exam Extremities exam: Present: normal inspection, tenderness, joint swelling (right elbow shows some mild swelling with an abrasion that is scabbed) - Back Exam Back exam: Present: normal inspection - Neurological Exam Neurological exam: Present: alert, oriented X3 - Psychiatric Psychiatric exam: Present: normal affect, normal mood - Skin Skin exam: Present: warm, dry, intact, normal color. Absent: rash ED Course Vital Signs 04/02/18 10:55 Temperature 98.0 F Pulse Rate 83 Respiratory 18 Rate Blood Pressure 137/59 O2 Sat by Pulse 96 Oximetry ED Medical Decision Making - Radiology Data X-ray of the right elbow shows no acute fracture X-ray of the bilateral ribs shows a questionable rig lateral seventh rib fracture ht Critical care attestation.: If time is entered above; I have spent that time in minutes in the direct care of this critically ill patient, excluding procedure time. ED Disposition Clinical Impression: Rib fracture Qualifiers: Encounter type: initial encounter Rib fracture type: single rib Fracture type: closed Laterality: right Qualified Code(s): S22.31XA - Fracture of one rib, right side, initial encounter for closed fracture Elbow abrasion Qualifiers: Encounter type: initial encounter Laterality: right Qualified Code(s): S50.311A - Abrasion of right elbow, initial encounter Disposition: - TO HOME OR SELFCARE Is pt being admited?: No Does the pt Need Aspirin: No Condition: Stable Instructions: Rib Fracture (ED) Referrals: ALCON ALVES MD [Primary Care Provider] - 3-5 Days
== END 2018-04-02 13:52 | disposition home or self-care (01) ==
LOC: ED 10:22
DX: S22.31XA Fracture of one rib, right side, initial encounter for closed fracture (principal); S50.311A Abrasion of right elbow, initial encounter; I10 Essential (primary) hypertension; E11.9 Type 2 diabetes mellitus without complications; K21.9 Gastro-esophageal reflux disease without esophagitis; M19.90 Unspecified osteoarthritis, unspecified site; I48.91 Unspecified atrial fibrillation; M79.7 Fibromyalgia; Z90.49 Acquired absence of other specified parts of digestive tract; Z90.710 Acquired absence of both cervix and uterus; Z87.442 Personal history of urinary calculi; Z91.09 Other allergy status, other than to drugs and biological substances; X58.XXXA Exposure to other specified factors, initial encounter; Y93.89 Activity, other specified; Y99.8 Other external cause status; Y92.89 Other specified places as the place of occurrence of the external cause
CPT/HCPCS: 71111; 99283

== ENCOUNTER 2018-07-12 09:31 | Emergency (ER) | payer SELFPAY ==
[2018-07-12] MEDS ORDERED: NACL 0.9% 1000 ML 1,000 ML IV ONE (09:48)
[2018-07-12 10:12] LABS: Basophils % (Auto) 0.3 % (0.0-1.8); Eosinophils # (Auto) 0.2 K/mm3 (0.0-0.4); Eosinophils % (Auto) 2.8 % (0.0-4.3); Hematocrit 36.4 % (30.3-42.9); Hemoglobin 12.7 gm/dl (10.1-14.3); Lymphocytes # (Auto) 2.1 K/mm3 (1.2-5.4); Lymphocytes % (Auto) 34.2 % (13.4-35.0); Mean Corpuscular HGB Conc 35 % (30-34); Mean Corpuscular Hemoglobin 30 pg (28-32); Mean Corpuscular Volume 87 fl (79-97); Monocytes # (Auto) 0.3 K/mm3 (0.0-0.8); Monocytes % (Auto) 5.5 % (0.0-7.3); Platelet Count 251 K/mm3 (140-440); Red Blood Count 4.19 M/mm3 (3.65-5.03); Red Cell Distribution Width 14.2 % (13.2-15.2)
[2018-07-12 10:30] LABS: Albumin 3.5 g/dL (3.9-5); BUN/Creatinine Ratio 24; Blood Urea Nitrogen 12 mg/dL (7-17); Calcium 8.9 mg/dL (8.4-10.2); Hemolysis Index 49; Lipase 30 units/L (13-60)
[2018-07-12 10:43] LABS: Alanine Aminotransferase < 5 units/L (7-56)
[2018-07-12 10:46] LABS: INR 1.37 (0.87-1.13)
--- NOTE | 2018-07-12 15:10 | Emergency Department Report ---
HPI - General Chief Complaint: GI Bleed Time Seen by Provider: 07/12/18 14:54 - HPI HPI: Room 3 The patient is a 53-year-old female presenting with a chief complaint of rectal bleeding. The patient states she's had rectal bleeding since yesterday. The patient states the blood is bright red in color. The patient states she is has some lower abdominal pain yesterday as well. Patient admits to nausea but denies vomiting. Of note the patient states she had a colonic polyp removed by Dr. Rollins. Location: Gastrointestinal system Duration: [See above] Quality: Cramping Severity: Moderate Modifying factors: [see above] Context: [see above] Mode of transportation: [not driving] ED Past Medical Hx - Past Medical History Hx Hypertension: Yes Hx Diabetes: Yes Hx GERD: Yes Hx Arthritis: Yes Additional medical history: afib, glaucoma/retinopathy, fibromyalgia. Kidney stones. Obesity - Surgical History Hx Cholecystectomy: Yes Additional Surgical History: Left Ankle fx, carpal tunnel bilateral wrists. Hysterectomy. Had polyp removed in June 2018 - Family History Family history: no significant - Social History Smoking Status: Never Smoker Substance Use Type: None (denies illicit drug use) - Medications Home Medications: Home Medications Medication Instructions Recorded Confirmed Last Taken Type Benazepril (Nf) 10 mg PO DAILY 08/09/13 02/12/18 02/11/18 History Furosemide [Lasix] 40 mg PO DAILY 08/09/13 02/12/18 10/27/14 History Insulin Aspart [Novolog 100 0 unit SQ AC PRN 08/09/13 02/12/18 10/27/14 History UNITS/ML] Insulin Glargine,Hum.rec.anlog 102 unit SQ QHS 08/09/13 02/12/18 10/27/14 History [Lantus Solostar] Insulin NPH/Regular [Novolin 70/30] 35 unit SQ QPM 08/09/13 02/12/18 02/11/18 History Insulin NPH/Regular [Novolin 70/30] 60 unit SQ QAM 08/09/13 02/12/18 10/27/14 History Metformin HCl [Fortamet] 1,000 mg PO BID 08/09/13 02/12/18 10/27/14 History Nebivolol HCl [Bystolic] 10 mg PO QDAY 08/09/13 02/12/18 10/27/14 History Pantoprazole [Protonix] 40 mg PO QDAY 08/09/13 02/12/18 02/11/18 History Phenazopyridine [Pyridium] 200 mg PO TID #9 tablet 08/09/13 02/12/18 10/27/14 Rx Potassium Chloride [Klor-Con] 20 meq PO QDAY 08/09/13 02/12/18 02/11/18 History Thyroid,Pork [[place] Thyroid] 90 mg PO QDAY 08/09/13 02/12/18 10/27/14 History amLODIPine [Norvasc] 10 mg PO DAILY 08/09/13 02/12/18 10/27/14 History Ciprofloxacin HCl [Ciprofloxacin 500 mg PO Q12H #14 tab 09/13/17 02/12/18 Unknown Rx TAB] ALBUTEROL Inhaler 2 puff INHALATION PRN PRN 02/12/18 02/12/18 Unknown History AtorvaSTATin 20 mg PO DAILY 02/12/18 02/12/18 02/11/18 History Carvedilol 25 mg PO DAILY 02/12/18 02/12/18 02/11/18 History Cyclobenzaprine 10 mg PO PRN PRN 02/12/18 02/12/18 Unknown History Enoxaparin 120 mg SUB-Q DAILY 02/12/18 02/12/18 02/11/18 History Flonase 1 puff INHALATION DAILY 02/12/18 02/12/18 Unknown History Furosemide 40 mg PO DAILY 02/12/18 02/12/18 02/11/18 History Gabapentin 600 mg PO DAILY 02/12/18 02/12/18 Unknown History Synthroid 1 tab PO DAILY 02/12/18 02/12/18 Unknown History Vitamin D (Nf) 1,000 mg PO DAILY 02/12/18 02/12/18 Unknown History Warfarin 5 mg PO DAILY 02/12/18 02/12/18 02/05/18 History Warfarin 10 mg PO 1XW 02/12/18 02/12/18 Unknown History Zofran TAB 8 mg PO PRN PRN 02/12/18 02/12/18 Unknown History traMADol [Ultram 50 MG tab] 50 mg PO Q6HR PRN #20 tablet 03/10/18 Unknown Rx HYDROcodone/APAP 5-325 [[place] 1 each PO Q4HR PRN #12 tablet 04/02/18 Unknown Rx 5/325] Ibuprofen [Motrin] 600 mg PO Q8H PRN #20 tablet 04/02/18 Unknown Rx ED Review of Systems ROS: Stated complaint: RECTUM BLEEDING/PAIN Other details as noted in HPI Constitutional: no symptoms reported Eyes: denies: eye pain ENT: denies: throat pain Respiratory: no symptoms reported Cardiovascular: denies: chest pain Endocrine: no symptoms reported Gastrointestinal: abdominal pain, nausea, hematochezia. denies: vomiting Genitourinary: denies: dysuria Musculoskeletal: denies: back pain Neurological: denies: headache Physical Exam - Physical Exam Vital Signs: Vital Signs 07/12/18 07/12/18 09:43 14:30 Temperature 97.7 F 98.1 F Pulse Rate 78 78 Respiratory 20 16 Rate Blood Pressure 140/74 105/72 O2 Sat by Pulse 98 98 Oximetry Physical Exam: GENERAL: The patient is well-developed well-nourished female lying on stretcher not appearing to be in acute distress. [] HEENT: Normocephalic. Atraumatic. Extraocular motions are intact. Patient has moist mucous membranes. NECK: Supple. Trachea midline CHEST/LUNGS: Clear to auscultation. There is no respiratory distress noted. HEART/CARDIOVASCULAR: Regular. There is no tachycardia. There is no gallop rub or murmur. ABDOMEN: Abdomen is soft, with trace discomfort to palpation diffusely. There is no rebound or guarding. Patient has normal bowel sounds. There is no abdominal distention. SKIN: There is no rash. There is no edema. There is no diaphoresis. NEURO: The patient is awake, alert, and oriented. The patient is cooperative. The patient has normal speech MUSCULOSKELETAL: There is no evidence of acute injury. RECTAL: ED Course Vital Signs 07/12/18 07/12/18 09:43 14:30 Temperature 97.7 F 98.1 F Pulse Rate 78 78 Respiratory 20 16 Rate Blood Pressure 140/74 105/72 O2 Sat by Pulse 98 98 Oximetry - Consultations Consultation #1: 07/12/18 15:54 Patient's intake counselor paged ([phone]) 07/12/18 15:[address] Rollins- recommends patient be admitted for observation ED Medical Decision Making - Lab Data Result diagrams: 07/12/18 09:59 07/12/18 09:59 Laboratory Tests 07/12/18 07/12/18 07/12/18 09:55 09:59 09:59 WBC 6.1 RBC 4.19 Hgb 12.7 Hct 36.4 MCV 87 MCH 30 MCHC 35 H RDW 14.2 Plt Count 251 Lymph % (Auto) 34.2 [place] % (Auto) 5.5 Eos % (Auto) 2.8 Baso % (Auto) 0.3 Lymph # 2.1 [place] # 0.3 Eos # 0.2 Baso # 0.0 Seg Neutrophils % 57.2 Seg Neutrophils # 3.5 PT 17.4 H INR 1.37 H APTT 36.0 Sodium Potassium Chloride Carbon Dioxide Anion Gap BUN Creatinine Estimated GFR BUN/Creatinine Ratio Glucose Calcium Total Bilirubin AST ALT Alkaline Phosphatase Total Protein Albumin Albumin/Globulin Ratio Lipase Blood Type O POSITIVE Antibody Screen Negative 07/12/18 09:59 WBC RBC Hgb Hct MCV MCH MCHC RDW Plt Count Lymph % (Auto) [place] % (Auto) Eos % (Auto) Baso % (Auto) Lymph # [place] # Eos # Baso # Seg Neutrophils % Seg Neutrophils # PT INR APTT Sodium 134 L Potassium 3.8 Chloride 99.2 Carbon Dioxide 25 Anion Gap 14 BUN 12 Creatinine 0.5 L Estimated GFR > 60 BUN/Creatinine Ratio 24 Glucose 280 H Calcium 8.9 Total Bilirubin 0.20 AST 30 ALT < 5 L Alkaline Phosphatase 109 Total Protein 6.9 Albumin 3.5 L Albumin/Globulin Ratio 1.0 Lipase 30 Blood Type Antibody Screen - EKG Data -: EKG Interpreted by Nv EKG shows normal: sinus rhythm Rate: normal - EKG Data When compared to previous EKG there are: no significant change Interpretation: unchanged when compared t (10/28/2014) - Differential Diagnosis GI bleed Critical care attestation.: If time is entered above; I have spent that time in minutes in the direct care of this critically ill patient, excluding procedure time. ED Disposition Clinical Impression: GI bleed Disposition: DC-09 OP ADMIT IP TO THIS HOSP Is pt being admited?: Yes Does the pt Need Aspirin: No Condition: Fair Referrals: ALCON ALVES MD [Primary Care Provider] - 3-5 Days Forms: Accompanied Note Time of Disposition: 16:00 (hospitalist paged (Dr Rich))
[2018-07-12 15:40] VITALS: BP 128/64
--- NOTE | 2018-07-12 17:07 | History and Physical Report ---
History of Present Illness Chief complaint: I was bleeding History of present illness: 53 YO Female with MO, HTN, DM, GERD, OA, Atrial Fib on Therapeutic Anticoagulation with recent dose adjustment, FM presents to ED for evaluation. Pt states that she has experienced 4 episodes of blood in her stool over the past 1 day. Pt is S/P colonoscopy and polypectomy on 07/03/18/ by Dr. Rollins. Pt also states that she has experienced mild abdominal discomfort/cramping over the past 1 day as well. Pt denies abdominal pain. Pt states that her bowel movements have the appearance of "dark pink lemonade". Pt denies fever, chills, CP, palpitations, gross bleeding, hematuria, diarrhea, NV, ingestion of food/ water from new or different sources. Pt seen and evaluated in ED and found to have evidence of lower GI Gleeding. Pt admitted to medical floor. Pt hgb stable at time of exam. No indication for blood transfusion at this time. Pt states that she wishes to go to [place] for further care. Pt admitted to medical floor. Past History Past Medical History: atrial fib, anemia, diabetes, GERD, hypertension Past Surgical History: cholecystectomy, Other (Left Ankle fx, carpal tunnel bilateral wrists. Hysterectomy. Had polyp removed in June 2018) Social history: single. denies: smoking, alcohol abuse, prescription drug abuse Family history: diabetes, hypertension Medications and Allergies Allergies Allergy/AdvReac Type Severity Reaction Status Date / Time adhesive tape Allergy Unknown Verified 03/10/18 01:18 Home Medications Medication Instructions Recorded Confirmed Last Taken Type Benazepril (Nf) 10 mg PO DAILY 08/09/13 02/12/18 02/11/18 History Furosemide [Lasix] 40 mg PO DAILY 08/09/13 02/12/18 10/27/14 History Insulin Aspart [Novolog 100 0 unit SQ AC PRN 08/09/13 02/12/18 10/27/14 History UNITS/ML] Insulin Glargine,Hum.rec.anlog 102 unit SQ QHS 08/09/13 02/12/18 10/27/14 History [Lantus Solostar] Insulin NPH/Regular [Novolin 70/30] 35 unit SQ QPM 08/09/13 02/12/18 02/11/18 History Insulin NPH/Regular [Novolin 70/30] 60 unit SQ QAM 08/09/13 02/12/18 10/27/14 History Metformin HCl [Fortamet] 1,000 mg PO BID 08/09/13 02/12/18 10/27/14 History Nebivolol HCl [Bystolic] 10 mg PO QDAY 08/09/13 02/12/18 10/27/14 History Pantoprazole [Protonix] 40 mg PO QDAY 08/09/13 02/12/18 02/11/18 History Phenazopyridine [Pyridium] 200 mg PO TID #9 tablet 08/09/13 02/12/18 10/27/14 Rx Potassium Chloride [Klor-Con] 20 meq PO QDAY 08/09/13 02/12/18 02/11/18 History Thyroid,Pork [[place] Thyroid] 90 mg PO QDAY 08/09/13 02/12/18 10/27/14 History amLODIPine [Norvasc] 10 mg PO DAILY 08/09/13 02/12/18 10/27/14 History Ciprofloxacin HCl [Ciprofloxacin 500 mg PO Q12H #14 tab 09/13/17 02/12/18 Unknown Rx TAB] ALBUTEROL Inhaler 2 puff INHALATION PRN PRN 02/12/18 02/12/18 Unknown History AtorvaSTATin 20 mg PO DAILY 02/12/18 02/12/18 02/11/18 History Carvedilol 25 mg PO DAILY 02/12/18 02/12/18 02/11/18 History Cyclobenzaprine 10 mg PO PRN PRN 02/12/18 02/12/18 Unknown History Enoxaparin 120 mg SUB-Q DAILY 02/12/18 02/12/18 02/11/18 History Flonase 1 puff INHALATION DAILY 02/12/18 02/12/18 Unknown History Furosemide 40 mg PO DAILY 02/12/18 02/12/18 02/11/18 History Gabapentin 600 mg PO DAILY 02/12/18 02/12/18 Unknown History Synthroid 1 tab PO DAILY 02/12/18 02/12/18 Unknown History Vitamin D (Nf) 1,000 mg PO DAILY 02/12/18 02/12/18 Unknown History Warfarin 5 mg PO DAILY 02/12/18 02/12/18 02/05/18 History Warfarin 10 mg PO 1XW 02/12/18 02/12/18 Unknown History Zofran TAB 8 mg PO PRN PRN 02/12/18 02/12/18 Unknown History traMADol [Ultram 50 MG tab] 50 mg PO Q6HR PRN #20 tablet 03/10/18 Unknown Rx HYDROcodone/APAP 5-325 [[place] 1 each PO Q4HR PRN #12 tablet 04/02/18 Unknown Rx 5/325] Ibuprofen [Motrin] 600 mg PO Q8H PRN #20 tablet 04/02/18 Unknown Rx Review of Systems Constitutional: no weight loss, no weight gain, no fever, no chills Ears, nose, mouth and throat: no ear pain, no ear discharge, no tinnitis, no decreased hearing, no nose pain, no nasal congestion Breasts: no change in shape, no swelling, no mass Cardiovascular: no chest pain, no orthopnea, no palpitations, no rapid/ irregular heart beat, no edema Respiratory: no cough, no cough with sputum, no excessive sputum, no hemoptysis Gastrointestinal: other (blood in stool.), no abdominal pain, no nausea, no vomiting, no diarrhea, no constipation, no hematemesis, no coffee ground emesis Genitourinary Female: no pelvic pain, no flank pain, no menorrhagia, no dysuria Rectal: no pain, no bleeding Musculoskeletal: no neck stiffness, no neck pain, no shooting arm pain, no arm numbness/tingling, no low back pain Neurological: no head injury, no transient paralysis, no paralysis, no weakness , no parathesias, no numbness, no tingling, no seizures, no syncope Psychiatric: no anxiety, no memory loss, no change in sleep habits, no sleep disturbances, no insomnia, no hypersomnia, no change in appetite, no change in libido Endocrine: no cold intolerance, no heat intolerance, no polyphagia, no excessive thirst, no polydipsia, no polyuria, no nocturia Hematologic/Lymphatic: no easy bruising, no easy bleeding, no lymphadenopathy, no lymphedema Allergic/Immunologic: no urticaria, no allergic rhinitis, no persistent infections, no anaphylaxis, no angioedema Exam - Constitutional Vitals: Temp Pulse Resp BP Pulse Ox 98.1 F 73 14 128/64 98 07/12/18 14:30 07/12/18 15:35 07/12/18 15:40 07/12/18 15:35 07/12/18 14:30 General appearance: Present: mild distress, obese - EENT Eyes: Present: PERRL ENT: hearing intact, clear oral mucosa - Neck Neck: Present: supple, normal ROM - Respiratory Respiratory effort: normal Respiratory: bilateral: CTA - Cardiovascular Rhythm: irregularly irregular Heart Sounds: Present: S1 & S2. Absent: rub, click - Extremities Extremities: pulses symmetrical, No edema Peripheral Pulses: within normal limits - Abdominal General gastrointestinal: Present: soft, non-tender, non-distended, normal bowel sounds Female genitourinary: Present: normal - Integumentary Integumentary: Present: clear, warm, dry - Musculoskeletal Musculoskeletal: gait normal, strength equal bilaterally - Psychiatric Psychiatric: appropriate mood/affect, intact judgment & insight - Neurologic Neurologic: CNII-XII intact, moves all extremities Results - Labs CBC & Chem 7: 07/12/18 09:59 07/12/18 09:59 Labs: Abnormal lab results 07/12/18 07/12/18 07/12/18 Range/Units 09:59 09:59 09:59 MCHC 35 H (30-34) % PT 17.4 H (12.2-14.9) Sec. INR 1.37 H (0.87-1.13) Sodium 134 L (137-145) mmol/L Creatinine 0.5 L (0.7-1.2) mg/dL Glucose 280 H (65-100) mg/dL ALT < 5 L (7-56) units/L Albumin 3.5 L (3.9-5) g/dL Assessment and Plan - Patient Problems (1) GI bleed Current Visit: Yes Status: Acute Plan to address problem: Admit to medical floor, Pt status discussed with Dr. Rollins, Drafting Layout Man, PPI therapy, CBC, supportive care. No transfusion at this time. (2) Atrial fibrillation Current Visit: Yes Status: Acute Qualifiers: Atrial fibrillation type: persistent Qualified Code(s): I48.1 - Persistent atrial fibrillation Plan to address problem: rate control, hold anticoagulation for now. repeat cbc (3) DVT prophylaxis Current Visit: Yes Status: Acute Plan to address problem: SCD to BLE while in bed.
== END 2018-07-12 17:49 | disposition admitted as inpatient to this hospital (09) ==
LOC: ED 09:31
DX: K92.2 Gastrointestinal hemorrhage, unspecified (principal); I10 Essential (primary) hypertension; E11.9 Type 2 diabetes mellitus without complications; K21.9 Gastro-esophageal reflux disease without esophagitis; M19.90 Unspecified osteoarthritis, unspecified site; I48.91 Unspecified atrial fibrillation; D64.9 Anemia, unspecified; M79.7 Fibromyalgia; Z87.442 Personal history of urinary calculi; Z90.49 Acquired absence of other specified parts of digestive tract; Z90.710 Acquired absence of both cervix and uterus; Z91.048 Other nonmedicinal substance allergy status; Z86.718 Personal history of other venous thrombosis and embolism; Z79.4 Long term (current) use of insulin
CPT/HCPCS: 36415; 80053; 82271; 83690; 85025; 85610; 85730; 86850; 86900; 86901; 93005; 93010; 99284

== ENCOUNTER 2019-01-02 10:30 | Outpatient (CLI) | payer OTHER ==
--- NOTE | 2019-01-02 11:07 | XRay Report ---
RIGHT ELBOW RADIOGRAPHS INDICATION: Right elbow pain. COMPARISON: 04/02/2018. FINDINGS: AP, lateral and oblique right elbow radiographs demonstrate intact overall articulation. Olecranon spur/enthesophyte posteromedially again noted measuring up to 6 mm. Intact radial head. No abnormal fat pad sign. CONCLUSION: No acute right elbow radiographic abnormality with olecranon spurring/enthesophyte again noted, as described. Please correlate clinically. Thank you for the opportunity to participate in this patient's care.
== END 2019-01-02 10:31 | disposition home or self-care (01) ==
LOC: XRAY 10:30
PROVIDERS: ATTEND Clinical Nurse Specialist Adult Health
DX: M25.521 Pain in right elbow (principal); E78.00 Pure hypercholesterolemia, unspecified; I10 Essential (primary) hypertension; K21.9 Gastro-esophageal reflux disease without esophagitis; E11.9 Type 2 diabetes mellitus without complications; E66.9 Obesity, unspecified; Z90.49 Acquired absence of other specified parts of digestive tract; Z90.710 Acquired absence of both cervix and uterus

== ENCOUNTER 2020-09-27 11:31 | Outpatient (CLI) | payer OTHER ==
--- NOTE | 2020-09-27 15:22 | Ultrasound Report ---
ULTRASOUND RENAL INDICATION / CLINICAL INFORMATION: OTHER MICROSCOPIC HEMATURIA. COMPARISON: CT abdomen pelvis 09/13/2017 FINDINGS: Technically difficult examination secondary to bowel gas, patient body habitus, and patient positioning. RIGHT KIDNEY: Length = 10.1 cm. - Echogenicity: Normal. - Cortical Thickness: Normal. - Hydronephrosis: None. - Cyst or mass: No significant abnormality. - Stones: Few poorly visualized echogenic foci measuring up to 8 mm possibly representing nonobstruct ing nephrolithiasis. LEFT KIDNEY: Length = 10.5 cm. - Echogenicity: Normal. - Cortical Thickness: Normal. - Hydronephrosis: None. - Cyst or mass: No significant abnormality. - Stones: None seen. URINARY BLADDER: Moderately distended without significant abnormality. FREE FLUID: None. ADDITIONAL FINDINGS: None. IMPRESSION: 1. Few poorly visualized echogenic right renal foci possibly representing nonobstructing nephrolithia sis. No evidence of obstructive uropathy. Signer Name: Mat Pugh MD Signed: 09/27/2020 3:17 PM Workstation Name: [id number]
== END 2020-09-27 11:32 | disposition home or self-care (01) ==
LOC: US 11:31
PROVIDERS: ATTEND Internal Medicine
DX: R31.29 Other microscopic hematuria (principal)
CPT/HCPCS: 76770

== ENCOUNTER 2020-12-02 11:00 | Observation (INO) | payer OTHER ==
[2020-12-02] MEDS ORDERED: ASPIRIN 325 MG TAB PO ONE (11:11)
[2020-12-02 11:38] LABS: Basophils % (Auto) 0.9 % (0.0-1.8); Eosinophils # (Auto) 0.2 K/mm3 (0.0-0.4); Eosinophils % (Auto) 4.8 % (0.0-4.3); Hematocrit 39.8 % (30.3-42.9); Hemoglobin 13.8 gm/dl (10.1-14.3); Lymphocytes # (Auto) 1.8 K/mm3 (1.2-5.4); Mean Corpuscular HGB Conc 35 % (30-34); Mean Corpuscular Volume 89 fl (79-97); Monocytes # (Auto) 0.4 K/mm3 (0.0-0.8); Monocytes % (Auto) 8.6 % (0.0-7.3); Platelet Count 259 K/mm3 (140-440); Red Blood Count 4.48 M/mm3 (3.65-5.03); Red Cell Distribution Width 13.9 % (13.2-15.2)
--- NOTE | 2020-12-02 11:57 | Emergency Department Report ---
ED Chest Pain HPI - General Chief Complaint: Chest Pain Stated Complaint: CHEST DISCOMFORT Time Seen by Provider: 12/02/20 11:44 Source: patient Mode of arrival: Ambulatory Limitations: No Limitations - History of Present Illness Initial Comments: This is a 55-year-old -[place] female presents to the emergency department with complaint of some chest discomfort, shortness of breath, palpitations and some nausea. Overall the patient says that this has been going on for the past week but worsened over the past 1 to 2 days. Last week the patient took a nitroglycerin for her chest discomfort which then caused a headache. That has since resolved. She describes the chest discomfort as a "heaviness" and she says that it is currently a 6 out of 10 in intensity. The heaviness sensation does not have any aggravating or alleviating factors, but the patient does develop palpitations when she goes to stand up or exert herself. She has a past medical history of CHF, diabetes, GERD, hypertension, atrial fibrillation anticoagulated on warfarin, kidney stones, and fibromyalgia. 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 She denies any tobacco or illicit drug use. - Related Data Home Medications Medication Instructions Recorded Confirmed Last Taken Furosemide [Lasix] 40 mg PO DAILY 08/09/13 02/12/18 10/27/14 Insulin Aspart (Nf) [Novolog 100 0 unit SQ AC PRN 08/09/13 02/12/18 10/27/14 UNITS/ML] Insulin Glargine,Hum.rec.anlog 102 unit SQ QHS 08/09/13 02/12/18 10/27/14 [Lantus Solostar] Insulin NPH/Regular [Novolin 70/30] 35 unit SQ QPM 08/09/13 02/12/18 02/11/18 Insulin NPH/Regular [Novolin 70/30] 60 unit SQ QAM 08/09/13 02/12/18 10/27/14 Metformin HCl [Fortamet] 1,000 mg PO BID 08/09/13 02/12/18 10/27/14 Nebivolol HCl [Bystolic] 10 mg PO QDAY 08/09/13 02/12/18 10/27/14 Pantoprazole [Protonix] 40 mg PO QDAY 08/09/13 02/12/18 02/11/18 Potassium Chloride [Klor-Con] 20 meq PO QDAY 08/09/13 02/12/18 02/11/18 Thyroid,Pork [[place] Thyroid] 90 mg PO QDAY 08/09/13 02/12/18 10/27/14 amLODIPine [Norvasc] 10 mg PO DAILY 08/09/13 02/12/18 10/27/14 benazepril (NF) [Benazepril (Nf)] 10 mg PO DAILY 08/09/13 02/12/18 02/11/18 ALBUTEROL Inhaler 2 puff INHALATION PRN PRN 02/12/18 02/12/18 Unknown AtorvaSTATin 20 mg PO DAILY 02/12/18 02/12/18 02/11/18 Carvedilol 25 mg PO DAILY 02/12/18 02/12/18 02/11/18 Cyclobenzaprine 10 mg PO PRN PRN 02/12/18 02/12/18 Unknown Enoxaparin 120 mg SUB-Q DAILY 02/12/18 02/12/18 02/11/18 Flonase 1 puff INHALATION DAILY 02/12/18 02/12/18 Unknown Furosemide 40 mg PO DAILY 02/12/18 02/12/18 02/11/18 Gabapentin 600 mg PO DAILY 02/12/18 02/12/18 Unknown Synthroid 1 tab PO DAILY 02/12/18 02/12/18 Unknown Vitamin D (Nf) 1,000 mg PO DAILY 02/12/18 02/12/18 Unknown Warfarin 5 mg PO DAILY 02/12/18 02/12/18 02/05/18 Warfarin 10 mg PO 1XW 02/12/18 02/12/18 Unknown Zofran TAB 8 mg PO PRN PRN 02/12/18 02/12/18 Unknown Previous Rx's Medication Instructions Recorded Last Taken Type Phenazopyridine [Pyridium] 200 mg PO TID #9 tablet 08/09/13 10/27/14 Rx Ciprofloxacin HCl [Ciprofloxacin 500 mg PO Q12H #14 tab 09/13/17 Unknown Rx TAB] traMADoL [Ultram 50 MG tab] 50 mg PO Q6HR PRN #20 tablet 03/10/18 Unknown Rx HYDROcodone/APAP 5-325 [[place] 1 each PO Q4HR PRN #12 tablet 04/02/18 Unknown Rx 5/325] Ibuprofen [Motrin] 600 mg PO Q8H PRN #20 tablet 04/02/18 Unknown Rx Allergies Allergy/AdvReac Type Severity Reaction Status Date / Time adhesive tape Allergy Unknown Verified 12/02/20 11:05 Heart Score - HEART Score History: Moderately suspicious EKG: Normal Age: 45-65 Risk factors: > 3 risk factors or hx of atherosclerotic disease Troponin: < normal limit HEART Score: 4 - Critical Actions Critical Actions: 4-6 pts:12-16.6% risk of adverse cardiac event. Should be admitted ED Review of Systems ROS: Stated complaint: CHEST DISCOMFORT Other details as noted in HPI Comment: All other systems reviewed and negative Constitutional: denies: chills, fever Eyes: denies: eye pain, vision change ENT: denies: ear pain, throat pain Respiratory: shortness of breath, SOB with exertion Cardiovascular: chest pain, palpitations, edema Gastrointestinal: nausea. denies: abdominal pain, vomiting Genitourinary: denies: dysuria, discharge Musculoskeletal: denies: back pain, arthralgia Skin: denies: rash, lesions Neurological: denies: weakness, confusion ED Past Medical Hx - Past Medical History Hx Hypertension: Yes Hx Congestive Heart Failure: Yes Hx Diabetes: Yes Hx GERD: Yes Hx Arthritis: Yes Additional medical history: afib, glaucoma/retinopathy, fibromyalgia. Kidney stones. Obesity - Surgical History Hx Cholecystectomy: Yes Additional Surgical History: Left Ankle fx, carpal tunnel bilateral wrists. Hysterectomy. Had polyp removed in June 2018 - Social History Smoking Status: Never Smoker - Medications Home Medications: Home Medications Medication Instructions Recorded Confirmed Last Taken Type Furosemide [Lasix] 40 mg PO DAILY 08/09/13 02/12/18 10/27/14 History Insulin Aspart (Nf) [Novolog 100 0 unit SQ AC PRN 08/09/13 02/12/18 10/27/14 History UNITS/ML] Insulin Glargine,Hum.rec.anlog 102 unit SQ QHS 08/09/13 02/12/18 10/27/14 History [Lantus Solostar] Insulin NPH/Regular [Novolin 70/30] 35 unit SQ QPM 08/09/13 02/12/18 02/11/18 History Insulin NPH/Regular [Novolin 70/30] 60 unit SQ QAM 08/09/13 02/12/18 10/27/14 History Metformin HCl [Fortamet] 1,000 mg PO BID 08/09/13 02/12/18 10/27/14 History Nebivolol HCl [Bystolic] 10 mg PO QDAY 08/09/13 02/12/18 10/27/14 History Pantoprazole [Protonix] 40 mg PO QDAY 08/09/13 02/12/18 02/11/18 History Phenazopyridine [Pyridium] 200 mg PO TID #9 tablet 08/09/13 02/12/18 10/27/14 Rx Potassium Chloride [Klor-Con] 20 meq PO QDAY 08/09/13 02/12/18 02/11/18 History Thyroid,Pork [[place] Thyroid] 90 mg PO QDAY 08/09/13 02/12/18 10/27/14 History amLODIPine [Norvasc] 10 mg PO DAILY 08/09/13 02/12/18 10/27/14 History benazepril (NF) [Benazepril (Nf)] 10 mg PO DAILY 08/09/13 02/12/18 02/11/18 History Ciprofloxacin HCl [Ciprofloxacin 500 mg PO Q12H #14 tab 09/13/17 02/12/18 Unknown Rx TAB] ALBUTEROL Inhaler 2 puff INHALATION PRN PRN 02/12/18 02/12/18 Unknown History AtorvaSTATin 20 mg PO DAILY 02/12/18 02/12/18 02/11/18 History Carvedilol 25 mg PO DAILY 02/12/18 02/12/18 02/11/18 History Cyclobenzaprine 10 mg PO PRN PRN 02/12/18 02/12/18 Unknown History Enoxaparin 120 mg SUB-Q DAILY 02/12/18 02/12/18 02/11/18 History Flonase 1 puff INHALATION DAILY 02/12/18 02/12/18 Unknown History Furosemide 40 mg PO DAILY 02/12/18 02/12/18 02/11/18 History Gabapentin 600 mg PO DAILY 02/12/18 02/12/18 Unknown History Synthroid 1 tab PO DAILY 02/12/18 02/12/18 Unknown History Vitamin D (Nf) 1,000 mg PO DAILY 02/12/18 02/12/18 Unknown History Warfarin 5 mg PO DAILY 02/12/18 02/12/18 02/05/18 History Warfarin 10 mg PO 1XW 02/12/18 02/12/18 Unknown History Zofran TAB 8 mg PO PRN PRN 02/12/18 02/12/18 Unknown History traMADoL [Ultram 50 MG tab] 50 mg PO Q6HR PRN #20 tablet 03/10/18 Unknown Rx HYDROcodone/APAP 5-325 [[place] 1 each PO Q4HR PRN #12 tablet 04/02/18 Unknown Rx 5/325] Ibuprofen [Motrin] 600 mg PO Q8H PRN #20 tablet 04/02/18 Unknown Rx ED Physical Exam - General Limitations: No Limitations - Other Other exam information: GENERAL: The patient is well-developed well-nourished. HENT: Normocephalic. Atraumatic. Patient has moist mucous membranes. EYES: Extraocular motions are intact. NECK: Supple. Trachea is midline. CHEST/LUNGS: Clear to auscultation. There is no respiratory distress noted. HEART/CARDIOVASCULAR: Regular. There is no tachycardia. There is no murmur. ABDOMEN: Abdomen is soft, nontender. Patient has normal bowel sounds. Obese habitus. SKIN: Skin is warm and dry. NEURO: The patient is awake, alert, and oriented. The patient is cooperative. The patient has no focal neurologic deficits. Normal speech. Cranial nerves II through XII grossly intact. No pronator drift or dysmetria. No facial asymmetry. MUSCULOSKELETAL: There is no tenderness or deformity. There is no limitation range of motion. ED Course Vital Signs 12/02/20 12/02/20 12/02/20 11:07 11:41 11:45 Temperature 98.1 F Pulse Rate 79 78 79 Respiratory 20 17 18 Rate Blood Pressure 141/69 134/59 O2 Sat by Pulse 98 95 Oximetry 12/02/20 12/02/20 12/02/20 12:00 12:30 13:02 Temperature Pulse Rate 75 75 84 Respiratory 22 9 L 19 Rate Blood Pressure 134/59 123/59 106/56 O2 Sat by Pulse 97 97 98 Oximetry 12/02/20 12/02/20 13:30 14:00 Temperature Pulse Rate 81 75 Respiratory 19 24 Rate Blood Pressure 106/56 106/56 O2 Sat by Pulse 96 95 Oximetry ADDISON score - Addison Score Age > 65: (0) No Aspirin use within the Past 7 Days: (0) No 3 or more CAD Risk Factors: (1) Yes 2 or more Angina events in past 24 hrs: (1) Yes Known CAD with more than 50% Stenosis: (0) No Elevated Cardiac Markers: (0) No ST Deviation Greater than 0.5mm: (0) No ADDISON Score: 2 ED Medical Decision Making - Lab Data Result diagrams: 12/02/20 11:15 12/02/20 11:15 - EKG Data -: EKG Interpreted by Me EKG shows normal: sinus rhythm, axis, intervals, QRS complexes, ST-T waves Rate: normal - EKG Data When compared to previous EKG there are: previous EKG unavailable Interpretation: normal EKG, unchanged when compared t (07/12/18) - Radiology Data Radiology results: image reviewed interpreted by me: Chest x-ray does not show any pneumonia, pleural effusions, pneumothorax, focal consolidation. - Medical Decision Making This patient presents with some intermittent shortness of breath, palpitations and a chest heaviness. EKG does not have any morphology consistent with ST elevation myocardial infarction. Chest x-ray does not show any pneumonia, pleural effusions, pneumothorax, focal consolidation, or any other acute process. The patient appears to be appropriately anticoagulated on her Coumadin with an INR of about 2.6. There is some hyperglycemia but the patient does not appear in diabetic ketoacidosis. First troponin negative. The patient has a moderate heart and ADDISON score and it has been at least 1 year since the patient had a stress test. For all these reasons the patient will be admitted to the hospital for further evaluation and treatment was accepted for admission by the hospitalist, Dr. Drummond. Critical Care Time: No Critical care attestation.: If time is entered above; I have spent that time in minutes in the direct care of this critically ill patient, excluding procedure time. ED Disposition Clinical Impression: Acute chest pain, Palpitations, Anticoagulation adequate, Angina at rest Disposition: OP ADMIT IP TO THIS HOSP Is pt being admited?: Yes Condition: Fair Instructions: Angina (ED), Chest Pain (ED) Referrals: PRIMARY CARE, [Primary Care Provider] - 3-5 Days Time of Disposition: 15:09
--- NOTE | 2020-12-02 12:27 | XRay Report ---
CHEST 2 VIEWS INDICATION / CLINICAL INFORMATION: Chest Pain. COMPARISON: None available. FINDINGS: SUPPORT DEVICES: None. HEART / MEDIASTINUM: No significant abnormality. LUNGS / PLEURA: No significant pulmonary or pleural abnormality. No pneumothorax. ADDITIONAL FINDINGS: No significant additional findings. IMPRESSION: 1. No acute findings. Signer Name: Anand Malave MD Signed: 12/02/2020 12:22 PM Workstation Name: [id number]
[2020-12-02 14:05] LABS: Alanine Aminotransferase TNR units/L (7-56); BUN/Creatinine Ratio TNR; Blood Urea Nitrogen TNR mg/dL (7-17); Calcium TNR mg/dL (8.4-10.2)
[2020-12-02 14:06] LABS: Albumin TNR g/dL (3.9-5); Bilirubin,Direct TNR mg/dL (0-0.2)
[2020-12-02 14:07] LABS: INR 2.63 (0.87-1.13)
[2020-12-02 14:08] LABS: Partial Thromboplastin Time 37.6 Sec. (24.2-36.6)
[2020-12-02 14:11] LABS: Hemolysis Index 26
[2020-12-02 14:30] LABS: BUN/Creatinine Ratio 24; Blood Urea Nitrogen 24 mg/dL (7-17)
[2020-12-02 14:31] LABS: Bilirubin,Direct < 0.2 mg/dL (0-0.2); Calcium 9.5 mg/dL (8.4-10.2)
[2020-12-02 14:32] LABS: Hemolysis Index 26
[2020-12-02 14:53] LABS: Alanine Aminotransferase < 5 units/L (7-56)
[2020-12-02] MEDS ORDERED: ACETAMINOPHEN 325 MG TAB PO PRN (18:48)
[2020-12-02] MEDS ORDERED: oxyCODONE /ACETAMINOPHEN 5-325MG TAB PO PRN (18:48)
[2020-12-02] MEDS ORDERED: ONDANSETRON 4 MG/2 ML INJ IV PRN (18:48)
[2020-12-02] MEDS ORDERED: HYDROmorphone 1 MG/1 ML INJ IV PRN (18:48)
[2020-12-02] MEDS ORDERED: SODIUM CHLORIDE 0.9% 1000 ML 1,000 ML IV SCH (19:00)
[2020-12-02] MEDS ORDERED: FAMOTIDINE 20 MG/2 ML INJ IV SCH (22:00)
[2020-12-02] MEDS ORDERED: HEPARIN 5,000 UNIT/1 ML VIAL SUB-Q SCH (22:00)
[2020-12-03 06:25] LABS: Basophils % (Auto) 0.8 % (0.0-1.8); Eosinophils # (Auto) 0.2 K/mm3 (0.0-0.4); Eosinophils % (Auto) 4.6 % (0.0-4.3); Hematocrit 37.5 % (30.3-42.9); Lymphocytes # (Auto) 1.9 K/mm3 (1.2-5.4); Lymphocytes % (Auto) 37.8 % (13.4-35.0); Mean Corpuscular HGB Conc 35 % (30-34); Mean Corpuscular Volume 88 fl (79-97); Monocytes # (Auto) 0.4 K/mm3 (0.0-0.8); Monocytes % (Auto) 7.8 % (0.0-7.3); Platelet Count 238 K/mm3 (140-440); Red Blood Count 4.26 M/mm3 (3.65-5.03); Red Cell Distribution Width 13.7 % (13.2-15.2)
[2020-12-03 06:45] LABS: Albumin 3.6 g/dL (3.9-5)
[2020-12-03 07:47] LABS: Alanine Aminotransferase 23 units/L (7-56); BUN/Creatinine Ratio 22; Blood Urea Nitrogen 20 mg/dL (7-17); Calcium 8.9 mg/dL (8.4-10.2); Hemolysis Index 15
--- NOTE | 2020-12-03 09:27 | Progress Note ---
Assessment and Plan - Patient Problems (1) Acute chest pain Current Visit: Yes Status: Acute Plan to address problem: Chest pain work-up serial troponins and Lexiscan on Saturday because Lexiscan is not available on Saturdays and Sundays today is Saturday (2) HTN (hypertension) Current Visit: Yes Status: Acute (3) CAD (coronary artery disease) Current Visit: Yes Status: Chronic Qualifiers: Coronary Disease-Associated Artery/Lesion type: [place] artery [place] vs. 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: unspecified senior living insulin use status Plan to address problem: Cont Insulin and coverage (6) Hyperlipidemia Current Visit: Yes Status: Chronic Qualifiers: Hyperlipidemia type: mixed hyperlipidemia Qualified Code(s): E78.2 - Mixed hyperlipidemia (7) DVT prophylaxis Current Visit: No Status: Acute Plan to address problem: On Lovenox and GI prophylaxis Subjective Date of service: 12/02/20 Principal diagnosis: chest pain since yesterday Interval history: This is a 55-year-old -[place] female presents to the emergency department with complaint of some chest discomfort, shortness of breath, palpitations and some nausea. Overall the patient says that this has been going on for the past week but worsened over the past 1 to 2 days. Last week the patient took a nitroglycerin for her chest discomfort which then caused a headache. That has since resolved. She describes the chest discomfort as a "heaviness" and she says that it is currently a 6 out of 10 in intensity. The heaviness sensation does not have any aggravating or alleviating factors, but the patient does develop palpitations when she goes to stand up or exert herself. She has a past medical history of CHF, diabetes, GERD, hypertension, atrial fibrillation anticoagulated on warfarin, kidney stones, and fibromyalgia. 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 She denies any tobacco or illicit drug use. - Related Data Home Medications Medication Instructions Recorded Confirmed Last Taken Furosemide [Lasix] 40 mg PO DAILY 10/02/12/18 10/27/14 Insulin Aspart (Nf) [Novolog 100 0 unit SQ AC PRN 08/09/13 02/12/18 10/27/14 UNITS/ML] Insulin Glargine,Hum.rec.anlog 102 unit SQ QHS 08/09/13 02/12/18 10/27/14 [Lantus Solostar] Insulin NPH/Regular [Novolin 70/30] 35 unit SQ QPM 08/09/13 02/12/18 02/11/18 Insulin NPH/Regular [Novolin 70/30] 60 unit SQ QAM 08/09/13 02/12/18 10/27/14 Metformin HCl [Fortamet] 1,000 mg PO BID 08/09/13 02/12/18 10/27/14 Nebivolol HCl [Bystolic] 10 mg PO QDAY 08/09/13 02/12/18 10/27/14 Pantoprazole [Protonix] 40 mg PO QDAY 08/09/13 02/12/18 02/11/18 Potassium Chloride [Klor-Con] 20 meq PO QDAY 08/09/13 02/12/18 02/11/18 Thyroid,Pork [[place] Thyroid] 90 mg PO QDAY 08/09/13 02/12/18 10/27/14 amLODIPine [Norvasc] 10 mg PO DAILY 08/09/13 02/12/18 10/27/14 benazepril (NF) [Benazepril (Nf)] 10 mg PO DAILY 08/09/13 02/12/18 02/11/18 ALBUTEROL Inhaler 2 puff INHALATION PRN PRN 02/12/18 02/12/18 Unknown AtorvaSTATin 20 mg PO DAILY 02/12/18 02/12/18 02/11/18 Carvedilol 25 mg PO DAILY 02/12/18 02/12/18 02/11/18 Cyclobenzaprine 10 mg PO PRN PRN 02/12/18 02/12/18 Unknown Enoxaparin 120 mg SUB-Q DAILY 02/12/18 02/12/18 02/11/18 Flonase 1 puff INHALATION DAILY 02/12/18 02/12/18 Unknown Furosemide 40 mg PO DAILY 02/12/18 02/12/18 02/11/18 Gabapentin 600 mg PO DAILY 02/12/18 02/12/18 Unknown Synthroid 1 tab PO DAILY 02/12/18 02/12/18 Unknown Vitamin D (Nf) 1,000 mg PO DAILY 02/12/18 02/12/18 Unknown Warfarin 5 mg PO DAILY 02/12/18 02/12/18 02/05/18 Warfarin 10 mg PO 1XW 02/12/18 02/12/18 Unknown Zofran TAB 8 mg PO PRN PRN 02/12/18 02/12/18 Unknown Previous Rx's Medication Instructions Recorded Last Taken Type Phenazopyridine [Pyridium] 200 mg PO TID #9 tablet 08/09/13 10/27/14 Rx Ciprofloxacin HCl [Ciprofloxacin 500 mg PO Q12H #14 tab 09/13/17 Unknown Rx TAB] traMADoL [Ultram 50 MG tab] 50 mg PO Q6HR PRN #20 tablet 03/10/18 Unknown Rx HYDROcodone/APAP 5-325 [[place] 1 each PO Q4HR PRN #12 tablet 04/02/18 Unknown Rx 5/325] Ibuprofen [Motrin] 600 mg PO Q8H PRN #20 tablet 04/02/18 Unknown Rx Allergies Allergy/AdvReac Type Severity Reaction Status Date / Time adhesive tape Allergy Unknown Verified 12/02/20 11:05 Heart Score - HEART Score History: Moderately suspicious EKG: Normal Age: 45-65 Risk factors: > 3 risk factors or hx of atherosclerotic disease Troponin: < normal limit HEART Score: 4 - Critical Actions Critical Actions: 4-6 pts:12-16.6% risk of adverse cardiac event. Should be admitted - Past Medical History Hx Hypertension: Yes Hx Congestive Heart Failure: Yes Hx Diabetes: Yes Hx GERD: Yes Hx Arthritis: Yes Additional medical history: afib, glaucoma/retinopathy, fibromyalgia. Kidney stones. Obesity - Surgical History Hx Cholecystectomy: Yes Additional Surgical History: Left Ankle fx, carpal tunnel bilateral wrists. Hysterectomy. Had polyp removed in June 2018 - Social History Smoking Status: Never Smoker - Medications Home Medications: Home Medications Medication Instructions Recorded Confirmed Last Taken Type Furosemide [Lasix] 40 mg PO DAILY 08/09/13 02/12/18 10/27/14 History Insulin Aspart (Nf) [Novolog 100 0 unit SQ AC PRN 08/09/13 02/12/18 10/27/14 History UNITS/ML] Insulin Glargine,Hum.rec.anlog 102 unit SQ QHS 08/09/13 02/12/18 10/27/14 History [Lantus Solostar] Insulin NPH/Regular [Novolin 70/30] 35 unit SQ QPM 08/09/13 02/12/18 02/11/18 History Insulin NPH/Regular [Novolin 70/30] 60 unit SQ QAM 08/09/13 02/12/18 10/27/14 History Metformin HCl [Fortamet] 1,000 mg PO BID 08/09/13 02/12/18 10/27/14 History Nebivolol HCl [Bystolic] 10 mg PO QDAY 08/09/13 02/12/18 10/27/14 History Pantoprazole [Protonix] 40 mg PO QDAY 08/09/13 02/12/18 02/11/18 History Phenazopyridine [Pyridium] 200 mg PO TID #9 tablet 08/09/13 02/12/18 10/27/14 Rx Potassium Chloride [Klor-Con] 20 meq PO QDAY 08/09/13 02/12/18 02/11/18 History Thyroid,Pork [[place] Thyroid] 90 mg PO QDAY 08/09/13 02/12/18 10/27/14 History amLODIPine [Norvasc] 10 mg PO DAILY 08/09/13 02/12/18 10/27/14 History benazepril (NF) [Benazepril (Nf)] 10 mg PO DAILY 08/09/13 02/12/18 02/11/18 History Ciprofloxacin HCl [Ciprofloxacin 500 mg PO Q12H #14 tab 09/13/17 02/12/18 Unknown Rx TAB] ALBUTEROL Inhaler 2 puff INHALATION PRN PRN 02/12/18 02/12/18 Unknown History AtorvaSTATin 20 mg PO DAILY 02/12/18 02/12/18 02/11/18 History Carvedilol 25 mg PO DAILY 02/12/18 02/12/18 02/11/18 History Cyclobenzaprine 10 mg PO PRN PRN 02/12/18 02/12/18 Unknown History Enoxaparin 120 mg SUB-Q DAILY 02/12/18 02/12/18 02/11/18 History Flonase 1 puff INHALATION DAILY 02/12/18 02/12/18 Unknown History Furosemide 40 mg PO DAILY 02/12/18 02/12/18 02/11/18 History Gabapentin 600 mg PO DAILY 02/12/18 02/12/18 Unknown History Synthroid 1 tab PO DAILY 02/12/18 02/12/18 Unknown History Vitamin D (Nf) 1,000 mg PO DAILY 02/12/18 02/12/18 Unknown History Warfarin 5 mg PO DAILY 02/12/18 02/12/18 02/05/18 History Warfarin 10 mg PO 1XW 02/12/18 02/12/18 Unknown History Zofran TAB 8 mg PO PRN PRN 02/12/18 02/12/18 Unknown History traMADoL [Ultram 50 MG tab] 50 mg PO Q6HR PRN #20 tablet 03/10/18 Unknown Rx HYDROcodone/APAP 5-325 [[place] 1 each PO Q4HR PRN #12 tablet 04/02/18 Unknown Rx 5/325] Ibuprofen [Motrin] 600 mg PO Q8H PRN #20 tablet 04/02/18 Unknown Rx Review of Systems ROS: Stated complaint: CHEST DISCOMFORT Other details as noted in HPI Comment: All other systems reviewed and negative Constitutional: denies: chills, fever Eyes: denies: eye pain, vision change ENT: denies: ear pain, throat pain Respiratory: shortness of breath, SOB with exertion Cardiovascular: chest pain, palpitations, edema Gastrointestinal: nausea. denies: abdominal pain, vomiting Genitourinary: denies: dysuria, discharge Musculoskeletal: denies: back pain, arthralgia Skin: denies: rash, lesions Neurological: denies: weakness, confusion Objective - Constitutional Vitals: Vital Signs - 12hr 12/02/20 12/02/20 12/03/20 22:10 23:52 04:34 Temperature 98.2 F 99.0 F 98.6 F Pulse Rate 73 74 77 Respiratory 19 18 18 Rate Blood Pressure 137/64 135/64 132/71 O2 Sat by Pulse 99 97 98 Oximetry General appearance: Present: no acute distress, well-nourished - EENT Eyes: PERRL, EOM intact ENT: hearing intact, clear oral mucosa Ears: bilateral: normal - Neck Neck: supple, normal ROM - Respiratory Respiratory effort: normal Respiratory: bilateral: CTA - Breasts Breasts: normal - Cardiovascular Heart rate: 78 Rhythm: regular Heart Sounds: Present: S1 & S2. Absent: gallop, rub Extremities: pulses intact, No edema, normal color, Full ROM - Gastrointestinal General gastrointestinal: Present: soft, non-tender, non-distended, normal bowel sounds - Genitourinary Female genitourinary: normal - Integumentary Integumentary: clear, warm, dry - Musculoskeletal Musculoskeletal: 1, strength equal bilaterally - Neurologic Neurologic: moves all extremities - Psychiatric Psychiatric: memory intact, appropriate mood/affect, intact judgment & insight - Labs CBC & Chem 7: 12/03/20 06:02 12/03/20 06:02 Labs: Abnormal lab results 12/02/20 12/02/20 12/02/20 Range/Units 11:15 11:15 11:15 MCHC 35 H (30-34) % Lymph % (Auto) 37.0 H (13.4-35.0) % [place] % (Auto) 8.6 H (0.0-7.3) % Eos % (Auto) 4.8 H (0.0-4.3) % PT (12.2-14.9) Sec. INR (0.87-1.13) APTT (24.2-36.6) Sec. BUN 24 H (7-17) mg/dL Glucose 292 H (65-100) mg/dL POC Glucose (70-105) mg/dL Hemoglobin A1c 10.5 H (4-6) % AST < 5 L (5-40) units/L ALT < 5 L (7-56) units/L Alkaline Phosphatase 143 H (35-129) units/L Albumin (3.9-5) g/dL 12/02/20 12/02/20 12/02/20 Range/Units 13:01 14:24 22:11 MCHC (30-34) % Lymph % (Auto) (13.4-35.0) % [place] % (Auto) (0.0-7.3) % Eos % (Auto) (0.0-4.3) % PT 28.2 H (12.2-14.9) Sec. INR 2.63 H (0.87-1.13) APTT 37.6 H (24.2-36.6) Sec. BUN (7-17) mg/dL Glucose (65-100) mg/dL POC Glucose 220 H 194 H (70-105) mg/dL Hemoglobin A1c (4-6) % AST (5-40) units/L ALT (7-56) units/L Alkaline Phosphatase (35-129) units/L Albumin (3.9-5) g/dL 12/03/20 12/03/20 Range/Units 06:02 06:02 MCHC 35 H (30-34) % Lymph % (Auto) 37.8 H (13.4-35.0) % [place] % (Auto) 7.8 H (0.0-7.3) % Eos % (Auto) 4.6 H (0.0-4.3) % PT (12.2-14.9) Sec. INR (0.87-1.13) APTT (24.2-36.6) Sec. BUN 20 H (7-17) mg/dL Glucose 267 H (65-100) mg/dL POC Glucose (70-105) mg/dL Hemoglobin A1c (4-6) % AST (5-40) units/L ALT (7-56) units/L Alkaline Phosphatase (35-129) units/L Albumin 3.6 L (3.9-5) g/dL HEART Score - HEART Score EKG: Normal Age: 45-65 Risk factors: > 3 risk factors or hx of atherosclerotic disease Troponin: Troponin T < 0.010 ng/mL (0.00-0.029) 12/02/20 17:05 Troponin: < normal limit - Critical Actions Critical Actions: 4-6 pts:12-16.6% risk of adverse cardiac event. Should be admitted
[2020-12-03 09:37] VITALS: BP 148/58
[2020-12-03] MEDS ORDERED: INSULIN LISPRO 100 UNIT/ML SUB-Q ONE (12:06)
[2020-12-03] MEDS ORDERED: INSULIN LISPRO 100 UNIT/ML SUB-Q SCH (12:30)
--- NOTE | 2020-12-03 14:03 | Discharge Summary ---
Providers - Providers Date of Admission: 12/02/20 18:48 Date of discharge: 12/03/20 Attending physician: FELY MCCOY Primary care physician: CORE INSPECTOR Hospitalization Condition: Fair Hospital course: Subjective Date of service: 12/03/20 Principal diagnosis: chest pain since yesterday Interval history: This is a 55-year-old -[place] female presents to the emergency department with complaint of some chest discomfort, shortness of breath, palpitations and some nausea. Overall the patient says that this has been going on for the past week but worsened over the past 1 to 2 days. Last week the patient took a nitroglycerin for her chest discomfort which then caused a headache. That has since resolved. She describes the chest discomfort as a "heaviness" and she says that it is currently a 6 out of 10 in intensity. The heaviness sensation does not have any aggravating or alleviating factors, but the patient does develop palpitations when she goes to stand up or exert herself. She has a past medical history of CHF, diabetes, GERD, hypertension, atrial fibrillation anticoagulated on warfarin, kidney stones, and fibromyalgia. 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 She denies any tobacco or illicit drug use. 10/02/2021 Patient has no chest pain Patient wants to go home and do the stress test as outpatient Patient is adamant about leaving if not she wants to sign out AMA Assessment and Plan - Patient Problems (1) Acute chest pain Current Visit: Yes Status: Acute Plan to address problem: Lexiscan pending but the patient wants to leave (2) HTN (hypertension) Current Visit: Yes Status: Acute Well-controlled (3) CAD (coronary artery disease) Current Visit: Yes Status: Chronic Qualifiers: Coronary Disease-Associated Artery/Lesion type: [place] artery [place] vs. transplanted heart: [place] heart Plan to address problem: Continue aspirin and Plavix (4) HTN (hypertension) Current Visit: Yes Status: Chronic Qualifiers: Hypertension type: essential hypertension Qualified Code(s): I10 - Essential (primary) hypertension Plan to address problem: Cont antihypertenives (5) T2DM (type 2 diabetes mellitus) Current Visit: Yes Status: Chronic Qualifiers: Diabetes mellitus rn long term care insulin use: unspecified rn long term care insulin use status Plan to address problem: Cont Insulin and coverage (6) Hyperlipidemia Current Visit: Yes Status: Chronic Qualifiers: Hyperlipidemia type: mixed hyperlipidemia Qualified Code(s): E78.2 - Mixed hyperlipidemia (7) DVT prophylaxis Current Visit: No Status: Acute Plan to address problem: On Lovenox and GI prophylaxis Disposition: TO HOME OR SELFCARE - Discharge Diagnoses (1) Acute chest pain Status: Acute (2) HTN (hypertension) Status: Acute (3) CAD (coronary artery disease) Status: Chronic Qualifiers: Coronary Disease-Associated Artery/Lesion type: [place] artery [place] vs. transplanted heart: [place] heart (4) HTN (hypertension) Status: Chronic Qualifiers: Hypertension type: essential hypertension Qualified Code(s): I10 - Essential (primary) hypertension (5) T2DM (type 2 diabetes mellitus) Status: Chronic Qualifiers: Diabetes mellitus rn long term care insulin use: unspecified rn long term care insulin use status (6) Hyperlipidemia Status: Chronic Qualifiers: Hyperlipidemia type: mixed hyperlipidemia Qualified Code(s): E78.2 - Mixed hyperlipidemia (7) DVT prophylaxis Status: Acute Core Measure Documentation - Palliative Care Palliative Care/ Comfort Measures: Not Applicable - Core Measures Any of the following diagnoses?: none Exam - Constitutional Vitals: Temp Pulse Resp BP Pulse Ox 98.2 F 72 18 148/58 96 12/03/20 09:37 12/03/20 09:37 12/03/20 04:34 12/03/20 09:37 12/03/20 09:37 General appearance: Present: no acute distress, well-nourished - EENT Eyes: Present: PERRL ENT: hearing intact, clear oral mucosa - Neck Neck: Present: supple, normal ROM - Respiratory Respiratory effort: normal Respiratory: bilateral: CTA - Cardiovascular Heart rate: 78 Rhythm: regular Heart Sounds: Present: S1 & S2. Absent: rub, click - Extremities Extremities: pulses symmetrical, No edema Peripheral Pulses: within normal limits - Abdominal General gastrointestinal: Present: soft, non-tender, non-distended, normal bowel sounds Female genitourinary: Present: normal - Integumentary Integumentary: Present: clear, warm, dry - Musculoskeletal Musculoskeletal: gait normal, strength equal bilaterally - Psychiatric Psychiatric: appropriate mood/affect, intact judgment & insight - Neurologic Neurologic: CNII-XII intact, moves all extremities - Allied Health Allied health notes reviewed: nursing, case management Plan Activity: no restrictions Follow up with: PRIMARY CAREMD [Primary Care Provider] - 3-5 Days Forms: AMA Form
== END 2020-12-03 15:33 | disposition home or self-care (01) ==
LOC: ED 11:00 → 4A 18:48
PROVIDERS: ADMIT Internal Medicine; ATTEND Internal Medicine
DX: I25.10 Atherosclerotic heart disease of native coronary artery without angina pectoris (principal); R00.2 Palpitations; R79.1 Abnormal coagulation profile; R07.89 Other chest pain; I10 Essential (primary) hypertension; E11.9 Type 2 diabetes mellitus without complications; E78.5 Hyperlipidemia, unspecified; K21.9 Gastro-esophageal reflux disease without esophagitis; M19.90 Unspecified osteoarthritis, unspecified site; I48.91 Unspecified atrial fibrillation; H40.9 Unspecified glaucoma; Z87.442 Personal history of urinary calculi; Z98.890 Other specified postprocedural states; Z90.710 Acquired absence of both cervix and uterus; Z79.4 Long term (current) use of insulin; Z90.49 Acquired absence of other specified parts of digestive tract; Z79.01 Long term (current) use of anticoagulants
CPT/HCPCS: 36415; 71046; 80048; 80053; 80076; 82962; 83036; 84484; 85025; 85610; 85730; 93005; 96372; 96374; 99285; G0378; J1644; J1815

== ENCOUNTER 2021-09-25 20:18 | Emergency (ER) | payer OTHER ==
[2021-09-25] MEDS ORDERED: ACETAMINOPHEN 325 MG TAB PO STA (21:10)
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
[2021-09-25 22:59] VITALS: BP 174/74
== END 2021-09-25 22:59 | disposition home or self-care (01) ==
LOC: ED 20:18
DX: Z13.30 Encounter for screening examination for mental health and behavioral disorders, unspecified (principal); I11.0 Hypertensive heart disease with heart failure; I50.9 Heart failure, unspecified; E11.9 Type 2 diabetes mellitus without complications; K21.9 Gastro-esophageal reflux disease without esophagitis; M19.90 Unspecified osteoarthritis, unspecified site; Z88.2 Allergy status to sulfonamides; Z88.8 Allergy status to other drugs, medicaments and biological substances; Z91.09 Other allergy status, other than to drugs and biological substances; Z79.4 Long term (current) use of insulin; Z79.01 Long term (current) use of anticoagulants
CPT/HCPCS: 99282; 99283